=== PATIENT | male | born 2005 | race Caucasian/White ===

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

== ENCOUNTER → 2025-04-30 | Outpatient (CLI) | payer SELFPAY, OTHER ==
--- NOTE | 2025-04-30 11:04 | VDLE_ITS ---
Reason For Study Reason For Study: Swelling RIGHT LEFT CFV is compressible, spontaneous, phasic, competent GSV is normal. and demonstrates normal augmentation. CFV is compressible, spontaneous, phasic, competent, Procedure and demonstrates normal augmentation. This is a venous duplex using B-mode, color flow and FV is compressible, spontaneous, phasic, competent spectral Doppler. and demonstrates normal augmentation. Exam performed in department. POP V is compressible, spontaneous, phasic, competent A preliminary report was called and/or faxed to and demonstrates normal augmentation. BORA Doss. T/P Trunk is compressible. PTV is compressible. LT PerV is compressible. VL/Venous Duplex US, Unilateral Interpretation Summary Deep veins of the left lower extremity are patent and compressible segmentally. There is no evidence of left lower extremity deep vein thrombosis. The left great saphenous vein appears patent an d compressible segmentally. Ordering Physician: Em Nichols Referring Physician: Yousif Lewis M.D. Performed By: Tamara Hilliard RVT
--- OUTSIDE RECORDS SUMMARY | 2025-04-30 22:49 | XMS RPT_ITS | CCD ---
Author Organization [facility] Inform ion Partnership [facility] Care Team Providers Care [employer] Mechanic Name Role Phone KAMLESH ADAMS Unavailable Unavailable GREER WHEELER Unavailable Unavailable Unavailable Primary Care Provider Unavailabl e Unavailable Primary Care Provider Unavailabl e Unavailable Primary Care Provider Unavailabl e HERNANDEZ PAYNE Referring Unavailable CARLO CEBALLOS Attending Unavailable HERNANDEZ PAYNE Attending Unavailable WESLEY VANCE Referring Unavailable SUMMER ALEMAN, DR GREER Haddad Primary Care Physician SUMMER ALEMAN, DR GREER Haddad Primary Care Unavailab mao PRADO MD, DR LIVE Gentile Attending Delfin WHEELER MD, DR GREER Haddad Primary Care Unavailab THAD Ferrell Attending Unavailable Allergies Allergy Classification Reported Allergen(s) Allergy Type Date of Onset Reaction(s) Facility (4 sources) Penicillins; Translations: [PENICILLINS] Propensity to adverse reactions 09-07-2006 [facility] Work Phone: (1 source) Penicillins Propensity to adverse reactions 09-07-2006 [facility] (2 sources) Penicillins Propensity to adverse reactions 09-07-2006 [facility] (4 sources) Fire Ant; Translations: [FIRE ANT] Drug Allergy 02-21-2025 Anaphylaxis [facility] (1 source) Penicillin; Translations: [penicillin] Drug Allergy [facility] Medications Current Medications Medication Drug Class(es) Dates Sig (Normalized) Sig (Original) acetaminophen 325 mg / HYDROcodone bitartrate 5 mg oral tablet (1 source) Opioid Agonist Start: 04-24-2025 End: 04-27-2025 take 1 tablet by mouth every six hours as needed for pain acetaminophen-hydr ocodone 325 mg-5 mg oral tablet Dose = 1 tab(s), Oral, q6hr, PRN for pain, X 3 day(s), # 5 tab(s), 0 Refill(s), Fall, 84.1 Start Date: 04/24/25 Stop Date: 04/27/25 Status: Ordered Quantity: 5.0 Unit: tab(s) Repeat number: 1 Indications: Unspecified fall, initial encounter; [id number] 0.1 ml EPINEPHrine 1 mg/ml auto-injector (2 sources) alpha-Adrenergic Agonist, beta-Adrenergic Agonist, Catecholamine EPINEPHrine 0.1 mg/0.1 mL AutoInjector 0.3 mg by INJECTION(UNSPECIF IED PARENTERAL ROUTES) route as needed (As needed for anaphylactic reactions). Active predniSONE 20 mg oral tablet (1 source) Start: 02-02-2023 End: 02-07-2023 take 2 tablets by mouth once daily predniSONE (DELTASONE) 20 mg tablet Indications: URI, acute Take 2 tablets by mouth once daily for 5 days. 10 tablet 0 02/02/2023 02/07/2023 Active Comment on above: Take 2 tablets by [facility] once daily for 5 days. Problems Active Problems Problem Classification Problem Date Documented Da te Episodic/Chronic Complications of surgical procedures or medical care (1 source) Non dose-related adverse reaction to medication; Translations: [Unspecified adverse effect of drug or medicament, initial encounter] 02-21-2025 Episodic E Codes: Fall (2 sources) Fall; Translations: [Unspecified fall, initial encounter] Onset: 04-24-2025 Episodic Other acquired deformities (1 source) Acquired deformity of lower limb; Translations: [Other specified acquired deformities of left thigh] Onset: 04-24-2025 Episodic Other acquired deformities (1 source) Other specified acquired deformities of left thigh; Translations: [Other specified acquired deformities of left thigh] Onset: 04-24-2025 Episodic Other injuries and conditions due to external causes (3 sources) Anaphylaxis; Translations: [Anaphylactic shock, unspecified, subsequent encounter] 02-05-2025 Episodic Other injuries and conditions due to external causes (2 sources) Anaphylactic shock, unspecified, subsequent encounter; Translations: [Anaphylaxis, subsequent encounter] Onset: 02-21-2025 Episodic Other upper respiratory infections (3 sources) Sore throat symptom; Translations: [Acute pharyngitis, unspecified] Onset: 04-07-2025 Episodic Poisoning by nonmedicinal substances (2 sources) Toxic effect of venom; Translations: [Toxic effect of contact with unspecified venomous animal, accidental (unintentional), initial encounter] Onset: 02-21-2025 02-21-2025 Episodic Residual codes; unclassified (1 source) Procedure not done; Translations: [Procedure and treatment not carried out, unspecified reason] Episodic Viral infection (1 source) Viral infection, unspecified; Translations: [Viral illness] Onset: 04-07-2025 Episodic Past or Other Problems Problem Classification Problem Date Documented Date Episodic/Chronic Immunizations and screening for infectious disease (5 sources) Anti-nuclear factor positive; Translations: [Other specified abnormal immunological findings in serum] Onset: 07-27-2013 07-27-2013 Episodic Inflammation; infection of eye (except that caused by tuberculosis or sexually transmitteddisease) (5 sources) Iritis; Translations: [Unspecified iridocyclitis] Onset: 07-09-2013 07-09-2013 Episodic Results Test Name Value Interpretation Reference Range Facility .Auto Diffon 04-24-2025 Basophil, Absolute 0.0 10 3/mcL Normal 0.0-0.3 [facility] Comment on above: Performed By: #### A BSGEL, ANEU, PRO, APTT, CBC, LIP, ADIFF, TROPHS, GFR, CMP, MDW, ABOGEL #### [address] [address] Basophils/100 WBC (Bld) 0.4 % Normal 0.0-2.5 [facility] Comment on above: Performed By: #### A BSGEL, ANEU, PRO, APTT, CBC, LIP, ADIFF, TROPHS, GFR, CMP, MDW, ABOGEL #### [address] [place], [place] [address] Eosinophil, Absolute 0.1 10 3/mcL Normal 0.0-0.7 [facility] Comment on above: Performed By: #### A BSGEL, ANEU, PRO, APTT, CBC, LIP, ADIFF, TROPHS, GFR, CMP, MDW, ABOGEL #### [address] [place], [place] [address] Eosinophils/100 WBC (Bld) 1.3 % Normal 0.0-6.0 [facility] Comment on above: Performed By: #### A BSGEL, ANEU, PRO, APTT, CBC, LIP, ADIFF, TROPHS, GFR, CMP, MDW, ABOGEL #### [address] [address] Lymphocyte, Absolute 2.3 10 3/mcL Normal 0.9-4.3 [facility] Comment on above: Performed By: #### A BSGEL, ANEU, PRO, APTT, CBC, LIP, ADIFF, TROPHS, GFR, CMP, MDW, ABOGEL #### [address] [address] Lymphocytes/100 WBC (Bld) 30.1 % Normal 20.0-40.0 [facility] Comment on above: Performed By: #### A BSGEL, ANEU, PRO, APTT, CBC, LIP, ADIFF, TROPHS, GFR, CMP, MDW, ABOGEL #### [address] [address] Monocyte, Absolute 0.5 10 3/mcL Normal 0.1-1.4 [facility] Comment on above: Performed By: #### A BSGEL, ANEU, PRO, APTT, CBC, LIP, ADIFF, TROPHS, GFR, CMP, MDW, ABOGEL #### [address] [address] Monocytes/100 WBC (Bld) 6.9 % Normal 2.0-13.0 [facility] Comment on above: Performed By: #### A BSGEL, ANEU, PRO, APTT, CBC, LIP, ADIFF, TROPHS, GFR, CMP, MDW, ABOGEL #### [address] [address] Neutrophils/100 WBC (Bld) 61.3 % Normal 50.0-75.0 [facility] Comment on above: Performed By: #### A BSGEL, ANEU, PRO, APTT, CBC, LIP, ADIFF, TROPHS, GFR, CMP, MDW, ABOGEL #### [facility] [address] [place], [place] [address] .GFRon 04-24-2025 Estimated Glomerular Filtration Rate 97 ml/min/1.73sqm Normal [facility] Comment on above: Result Comment: Stages of Chronic Kidney Disease (CKD) Stage Description eGFR(ml/min/1.73 sq.m.) CKD 1 Normal kidney function or >=90 normal kindney function with possible kidney damage (ex. Proteinuria) CKD 2 Kidney damage with mild loss 60-89 of kidney function CKD 3a Mild to moderate loss of kidney 45-59 function CKD 3b Moderate to severe loss of 30-44 of kindey function CKD 4 Severe loss of kidney function 15-29 CKD 5 Kidney failure <15 Note: (go live 2024) the eGFR calculation was updated to the 2020 CKD-EPI creatinine equation without a race factor to calculate the eGFR results. Performed By: #### A BSGEL, ANEU, PRO, APTT, CBC, LIP, ADIFF, TROPHS, GFR, CMP, MDW, ABOGEL ####[address] [place], [place] [address] .MDWon 04-24-2025 Monocyte Distribution Width 16.87 Normal 0.00-20.00 [facility] Comment on above: Result Comment: For ED adult patients suspected of sepsis, MDW<=20.0 does not rule out sepsis or risk of sepsis Performed By: #### A BSGEL, ANEU, PRO, APTT, CBC, LIP, ADIFF, TROPHS, GFR, CMP, MDW, ABOGEL ####[address] [place], [place] [address] .NEUABSon 04-24-2025 Neutrophil, Absolute 4.7 10 3/mcL Normal 2.3-8.1 [facility] Comment on above: Performed By: #### A BSGEL, ANEU, PRO, APTT, CBC, LIP, ADIFF, TROPHS, GFR, CMP, MDW, ABOGEL #### [address] [place], [place] [address] ABO/Rh (Gel)on 04-24-2025 ABO/Rh Interp Positive Invalid Interpretation Code [facility] Comment on above: Performed By: #### A BSGEL, ANEU, PRO, APTT, CBC, LIP, ADIFF, TROPHS, GFR, CMP, MDW, ABOGEL ####[address] [place], [place] [address] ABS (Gel)on 04-24-2025 ABSC Interp (Gel) Negative Normal [facility] Comment on above: Performed By: #### A BSGEL, ANEU, PRO, APTT, CBC, LIP, ADIFF, TROPHS, GFR, CMP, MDW, ABOGEL ####[address] [place], [place] [address] APTTon 04-24-2025 aPTT Coag (Bld) [Time] 30.6 s Normal 25.0-35.0 [facility] Comment on above: Result Comment: For Heparin anticoagulation therapy, the recommended therapeutic range is: 45.4-75.9 seconds. Patients on heparin therapy may have an extreme result. Performed By: #### A BSGEL, ANEU, PRO, APTT, CBC, LIP, ADIFF, TROPHS, GFR, CMP, MDW, ABOGEL ####[address] [place], [place] [address] CBCon 04-24-2025 Erythrocyte distribution width (RBC) [Ratio] 12.0 % Normal 11.5-15.5 [facility] Comment on above: Performed By: #### A BSGEL, ANEU, PRO, APTT, CBC, LIP, ADIFF, TROPHS, GFR, CMP, MDW, ABOGEL #### [address] [place], [place] [address] Hematocrit (Bld) [Volume fraction] 39.9 % Low 40.0-52.0 [facility] Comment on above: Performed By: #### A BSGEL, ANEU, PRO, APTT, CBC, LIP, ADIFF, TROPHS, GFR, CMP, MDW, ABOGEL #### [address] [place], [place] [address] Hgb 14.0 G/dL Normal 13.0-17.5 [facility] Comment on above: Performed By: #### A BSGEL, ANEU, PRO, APTT, CBC, LIP, ADIFF, TROPHS, GFR, CMP, MDW, ABOGEL #### [address] [address] MCH (RBC) [Entitic mass] 29.5 pg Normal 27.0-33.0 [facility] Comment on above: Performed By: #### A BSGEL, ANEU, PRO, APTT, CBC, LIP, ADIFF, TROPHS, GFR, CMP, MDW, ABOGEL #### [address] [address] MCHC 35.1 G/dL Normal 32.0-36.0 [facility] Comment on above: Performed By: #### A BSGEL, ANEU, PRO, APTT, CBC, LIP, ADIFF, TROPHS, GFR, CMP, MDW, ABOGEL #### [address] [address] MCV (RBC) [Entitic vol] 84.1 fL Normal 81.0-100.0 [facility] Comment on above: Performed By: #### A BSGEL, ANEU, PRO, APTT, CBC, LIP, ADIFF, TROPHS, GFR, CMP, MDW, ABOGEL #### [address] [address] Platelet 201 10 3/mcL Normal 150-450 [facility] Comment on above: Performed By: #### A BSGEL, ANEU, PRO, APTT, CBC, LIP, ADIFF, TROPHS, GFR, CMP, MDW, ABOGEL #### [address] [address] Platelet mean volume (Bld) [Entitic vol] 7.1 fL Normal 6.4-10.5 [facility] Comment on above: Performed By: #### A BSGEL, ANEU, PRO, APTT, CBC, LIP, ADIFF, TROPHS, GFR, CMP, MDW, ABOGEL #### [address] [address] RBC 4.75 10 6/mcL Normal 4.50-6.00 [facility] Comment on above: Performed By: #### A BSGEL, ANEU, PRO, APTT, CBC, LIP, ADIFF, TROPHS, GFR, CMP, MDW, ABOGEL #### [address] [place], [place] [address] WBC 7.6 10 3/mcL Normal 4.5-10.8 [facility] Comment on above: Performed By: #### A BSGEL, ANEU, PRO, APTT, CBC, LIP, ADIFF, TROPHS, GFR, CMP, MDW, ABOGEL #### [address] [address] CMPon 04-24-2025 Albumin Level 3.9 G/dL Normal 3.5-5.0 [facility] Comment on above: Performed By: #### A BSGEL, ANEU, PRO, APTT, CBC, LIP, ADIFF, TROPHS, GFR, CMP, MDW, ABOGEL ####[address] [address] Albumin/Globulin [Mass ratio] 1.3 {ratio} Normal 1.1-2.5 [facility] Comment on above: Performed By: #### A BSGEL, ANEU, PRO, APTT, CBC, LIP, ADIFF, TROPHS, GFR, CMP, MDW, ABOGEL ####[facility] [place], [place] [address] ALP [Catalytic activity/Vol] 122 U/L Normal 40-135 [facility] Comment on above: Performed By: #### A BSGEL, ANEU, PRO, APTT, CBC, LIP, ADIFF, TROPHS, GFR, CMP, MDW, ABOGEL ####[facility] [place], [place] [address] ALT [Catalytic activity/Vol] 39 U/L Normal 16-63 [facility] Comment on above: Performed By: #### A BSGEL, ANEU, PRO, APTT, CBC, LIP, ADIFF, TROPHS, GFR, CMP, MDW, ABOGEL ####[address] [place], [place] [address] AST [Catalytic activity/Vol] 25 U/L Normal 10-40 [facility] Comment on above: Performed By: #### A BSGEL, ANEU, PRO, APTT, CBC, LIP, ADIFF, TROPHS, GFR, CMP, MDW, ABOGEL ####[address] [address] Bili Total 0.4 mg/dL Normal 0.2-1.0 [facility] Comment on above: Result Comment: Use of this assay is not recommended for patients undergoing treatment with eltrombopag due to the potential for falsely elevated results. Performed By: #### A BSGEL, ANEU, PRO, APTT, CBC, LIP, ADIFF, TROPHS, GFR, CMP, MDW, ABOGEL ####[address] [place] [address] BUN/Creatinine Ratio 19 ratio Normal 7-27 [facility] Comment on above: Performed By: #### A BSGEL, ANEU, PRO, APTT, CBC, LIP, ADIFF, TROPHS, GFR, CMP, MDW, ABOGEL ####[address] [address] Calcium [Mass/Vol] 8.7 mg/dL Normal 8.4-10.2 [facility] Comment on above: Performed By: #### A BSGEL, ANEU, PRO, APTT, CBC, LIP, ADIFF, TROPHS, GFR, CMP, MDW, ABOGEL ####[address] [place], [place] [address] Chloride [Moles/Vol] 105 mmol/L Normal 98-107 [facility] Comment on above: Performed By: #### A BSGEL, ANEU, PRO, APTT, CBC, LIP, ADIFF, TROPHS, GFR, CMP, MDW, ABOGEL ####[address] [place], [place] [address] CO2 [Moles/Vol] 29 mmol/L Normal 22-29 [facility] Comment on above: Performed By: #### A BSGEL, ANEU, PRO, APTT, CBC, LIP, ADIFF, TROPHS, GFR, CMP, MDW, ABOGEL ####[facility] [place], [place] [address] Creatinine [Mass/Vol] 1.10 mg/dL Normal 0.67-1.17 [facility] Comment on above: Performed By: #### A BSGEL, ANEU, PRO, APTT, CBC, LIP, ADIFF, TROPHS, GFR, CMP, MDW, ABOGEL ####[address] [place], [place] [address] Electrolyte Balance 8.0 mEq/L Normal 4.0-15.0 [facility] Comment on above: Performed By: #### A BSGEL, ANEU, PRO, APTT, CBC, LIP, ADIFF, TROPHS, GFR, CMP, MDW, ABOGEL ####[address] [place], [place] [address] Globulin 2.9 G/dL Normal 2.7-4.4 [facility] Comment on above: Performed By: #### A BSGEL, ANEU, PRO, APTT, CBC, LIP, ADIFF, TROPHS, GFR, CMP, MDW, ABOGEL ####[address] [address] Glucose [Mass/Vol] 71 mg/dL Normal 70-105 [facility] Comment on above: Performed By: #### A BSGEL, ANEU, PRO, APTT, CBC, LIP, ADIFF, TROPHS, GFR, CMP, MDW, ABOGEL ####[address] [address] Potassium [Moles/Vol] 3.2 mmol/L Low 3.5-5.1 [facility] Comment on above: Performed By: #### A BSGEL, ANEU, PRO, APTT, CBC, LIP, ADIFF, TROPHS, GFR, CMP, MDW, ABOGEL ####[address] [place], [place] [address] Sodium [Moles/Vol] 142 mmol/L Normal 136-145 [facility] Comment on above: Performed By: #### A BSGEL, ANEU, PRO, APTT, CBC, LIP, ADIFF, TROPHS, GFR, CMP, MDW, ABOGEL ####[facility] [place], [place] [address] Total Protein 6.8 G/dL Normal 6.4-8.2 [facility] Comment on above: Performed By: #### A BSGEL, ANEU, PRO, APTT, CBC, LIP, ADIFF, TROPHS, GFR, CMP, MDW, ABOGEL ####[facility] [place], [place] [address] Urea nitrogen [Mass/Vol] 21 mg/dL High 7-18 [facility] Comment on above: Performed By: #### A BSGEL, ANEU, PRO, APTT, CBC, LIP, ADIFF, TROPHS, GFR, CMP, MDW, ABOGEL ####[facility] [place], [place] [address] CT ABD/PELVIS W/ IV CONTRAST ONLYon 04-24-2025 CT ABD/PELVIS W/ IV CONTRAST ONLY ORIGINAL EXAMINATION: CT OF THE ABDOMEN AND PELVIS WITH CONTRAST 04/24/2025 3:19 pm TECHNIQUE: CT of the abdomen and pelvis was performed with the administration of intravenous contrast. Multiplanar reformatted images are provided for review. Automated exposure control, iterative reconstruction, and/or weight based adjustment of the mA/kV was utilized to reduce the radiation dose to as low as reasonably achievable. COMPARISON: None. HISTORY: ORDERING SYSTEM PROVIDED HISTORY: Reason for Exam: pt fell through several floors, back pain pain; trauma patient FINDINGS: Please see separately dictated CT chest from same day for findings above the diaphragm. Lung bases are clear. No pleural effusion. Heart is normal in size without pericardial effusion. Normal liver morphology. No suspicious hepatic lesions. Gallbladder is unremarkable. No biliary dilatation. Spleen, pancreas and adrenal glands are unremarkable. Kidneys are symmetric in size without evidence of hydronephrosis or renal calculi. Ureters are normal in caliber. Urinary bladder is unremarkable. Prostate is normal in size. Esophagus, stomach and duodenum are unremarkable. Normal caliber small and large bowel. Appendix is unremarkable. No free pelvic fluid or evidence of pneumoperitoneum. Aorta is normal in caliber. Portal venous system is patent. No pathologically enlarged abdominal or pelvic lymph nodes. Abdominal wall is intact. No aggressive osseous lesions or evidence of acute displaced fracture within the abdomen and pelvis. IMPRESSION: No acute traumatic findings within the abdomen and pelvis. CT chest is dictated separately. Interpreted by: Carmelo Medina Preliminary Report By: Carmelo Medina Electronically signed By Carmelo Medina Dictated Date: 04/24/2025 3:21:46 PM Prelim Date: 04/24/2025 3:26:51 PM Sign Date: 04/24/2025 3:26:51 PM Ordering Provider: MASOOD WILLIAMS [facility] CT FEMUR W/O CONTRAST LEFTon 04-24-2025 CT FEMUR W/O CONTRAST LEFT ORIGINAL EXAMINATION: CT OF THE LEFT FEMUR WITHOUT CONTRAST 04/24/2025 3:14 pm TECHNIQUE: CT of the left femur was performed without the administration of intravenous contrast. Multiplanar reformatted images are provided for review. Automated exposure control, iterative reconstruction, and/or weight based adjustment of the mA/kV was utilized to reduce the radiation dose to as low as reasonably achievable. COMPARISON: Same day CT abdomen and pelvis HISTORY ORDERING SYSTEM PROVIDED HISTORY: Reason for Exam: suspected fracture, fall from height FINDINGS: Bones: There is buckling of the proximal to mid femoral shaft (series 601, image 71). No aggressive appearing osseous abnormality or periostitis. Soft Tissue: No significant soft tissue edema or fluid collections.Muscle compartments are unremarkable. Skeletally immature. There is loss of the normal contours of the femoral head neck junction of the anterior femur, cam deformity. IMPRESSION: 1. Buckling of the proximal to mid femoral shaft, this could be related to motion artifact offset on CT versus acute buckle fracture. 2. Cam deformity of the femoral head neck junction, correlate for femoroacetabular impingement. Interpreted by: Cris Freeman Preliminary Report By: Cris Freeman Electronically signed By Cris Freeman Dictated Date: 04/24/2025 3:55:43 PM Prelim Date: 04/24/2025 4:05:07 PM Sign Date: 04/24/2025 4:05:07 PM Ordering Provider: MASOOD BHATIA [facility] CT HEAD OR BRAIN W/O CONTRAS Ton 04-24-2025 CT HEAD OR BRAIN W/O CONTRAST ORIGINAL HISTORY: Fall COMPARISON: No TECHNIQUE: Routine noncontrast head CT, with sagittal and coronal reconstructions. This exam was performed according to our departmental dose optimization program, and includes the following measures where applicable: automated exposure control, adjustment of the mAs and/or kVp according to patient size and/or exam, and an iterative reconstruction algorithm. FINDINGS: The ventricles and sulci are normal in size and configuration. There are no abnormal intra or extra-axial fluid collections. -white matter differentiation is maintained. The calvaria and the bones of the base of the skull are intact. IMPRESSION: Negative. Interpreted by: Kelley Mensah MD Preliminary Report By: Kelley Mensah MD Electronically signed By Kelley Mensah MD Dictated Date: 04/24/2025 2:48:49 PM Prelim Date: 04/24/2025 2:49:40 PM Sign Date: 04/24/2025 2:49:40 PM Ordering Provider: [place] [facility] CT SPINE CERVICAL W/O CONTRA STon 04-24-2025 CT SPINE CERVICAL W/O CONTRAST ORIGINAL HISTORY: Pain, trauma COMPARISON: No TECHNIQUE: Cervical spine CT with sagittal and coronal reconstructions. This exam was performed according to our departmental dose optimization program, and includes the following measures where applicable: automated exposure control, adjustment of the mAs and/or kVp according to patient size and/or exam, and an iterative reconstruction algorithm. FINDINGS: There are no acute fractures or dislocations. There is straightening of the normal cervical lordosis. The individual vertebral bodies are intact. The prevertebral soft tissues are unremarkable in appearance. IMPRESSION: No acute fracture. Interpreted by: Kelley Mensah MD Preliminary Report By: Kelley Mensah MD Electronically signed By Kelley Mensah MD Dictated Date: 04/24/2025 3:04:20 PM Prelim Date: 04/24/2025 3:05:39 PM Sign Date: 04/24/2025 3:05:39 PM Ordering Provider: [place] [facility] CT THORAX W/ CONTRASTon 04-15 CT THORAX W/ CONTRAST ORIGINAL EXAMINATION: CT OF THE CHEST WITH CONTRAST 04/24/2025 3:07 pm TECHNIQUE: CT of the chest was performed with the administration of intravenous contrast. Multiplanar reformatted images are provided for review. Automated exposure control, iterative reconstruction, and/or weight based adjustment of the mA/kV was utilized to reduce the radiation dose to as low as reasonably achievable. COMPARISON: None. HISTORY: ORDERING SYSTEM PROVIDED HISTORY: Reason for Exam: pt fell through several floors, back pain ; trauma patient - suspect aortic rupture, pulmonary trauma FINDINGS: Mediastinum: There are no pathologically enlarged axillary or supraclavicular lymph nodes. There are no pathologically enlarged mediastinal lymph nodes. The main pulmonary artery and aorta are normal in caliber. Lungs/pleura: There is no pneumothorax, focal consolidation, or pleural effusion. Is no suspicious nodule or mass. No acute process within the visualized lungs. Upper Abdomen: Same day CT abdomen and pelvis is reported separately. Soft Tissues/Bones: No acute soft tissue abnormality. No aggressive osseous lesion. IMPRESSION: No acute intrathoracic process. I have personally reviewed the images of this examination and agree with the resident's findings and interpretation. Interpreted by: Dakota Wilkins DO Preliminary Report By: Freddy Lancaster Electronically signed By Dakota Wilkins DO Dictated Date: 04/24/2025 3:11:39 PM Prelim Date: 04/24/2025 3:48:10 PM Sign Date: 04/24/2025 3:48:10 PM Ordering Provider: MASOOD Casarez [facility]ORYOrdered By: Bonnie Seay on 04-24-2025 ABO and Rh group Nom (Bld) Blood group O Rh(D) positive Invalid Interpretation Code AO BB Auto SS Blood group antibody screen Ql Negative ABSC (04/24/25 2:55 PM) Normal AO BB Auto SS LABORATORYOrdered By: SYSTEM SYSTEM on 04-24-2025 Albumin BCP dye [Mass/Vol] 3.9 G/dL Normal 3.5 - 5.0 G/dL AO ADM SS Albumin/Globulin [Mass ratio] 1.3 {ratio} Normal 1.1 - 2.5 ratio AO ADM SS ALP [Catalytic activity/Vol] 122 U/L Normal 40 - 135 U/L AO ADM SS ALT With P-5'-P [Catalytic activity/Vol] 39 U/L Normal 16 - 63 U/L AO ADM SS aPTT Coag (PPP) [Time] 30.6 s Normal 25.0 - 35.0 seconds AO [facility] SS Comment on above: Interpretive Data: F or Heparin anticoagulation therapy, the recommended therapeutic range is: 45.4-75.9 seconds. Patients on heparin therapy may have an extreme result. AST With P-5'-P [Catalytic activity/Vol] 25 U/L Normal 10 - 40 U/L AO ADM SS Basophils (Bld) [#/Vol] 0.0 103/mcL Normal 0.0 - 0.3 10^3/mcL AO Workflow SS Basophils/100 WBC (Bld) 0.4 % Normal 0.0 - 2.5 % AO Workflow SS Bilirubin [Mass/Vol] 0.4 mg/dL Normal 0.2 - 1 .0 mg/dL AO ADM SS Comment on above: Interpretive Data: U se of this assay is not recommended for patients undergoing treatment with eltrombopag due to the potential for falsely elevated results. Calcium [Mass/Vol] 8.7 mg/dL Normal 8.4 - 10. 2 mg/dL AO ADM SS Chloride [Moles/Vol] 105 mmol/L Normal 98 - 10 7 mmol/L AO ADM SS CO2 [Moles/Vol] 29 mmol/L Normal 22 - 29 mmol/L AO ADM SS Creatinine [Mass/Vol] 1.10 mg/dL Normal 0.67 - 1.17 mg/dL AO ADM SS Electrolyte Balance 8.0 mEq/L Normal 4.0 - 15 .0 mEq/L AO ADM SS Eosinophil, Absolute 0.1 103/mcL Normal 0.0 - 0 .7 10^3/mcL AO Workflow SS Eosinophils/100 WBC (Bld) 1.3 % Normal 0.0 - 6.0 % AO Workflow SS Erythrocyte distribution width (RBC) [Ratio] 12.0 % Normal 11.5 - 15.5 % AO Workflow SS Estimated Glomerular Filtration Rate 97 ml/min/1.73sqm Invalid Interpretation Code AO Chemistry S Comment on above: Interpretive Data: Stages of Chronic Kidney Disease (CKD) Stage Description eGFR(ml/min/1.73 sq.m.) CKD 1 Normal kidney function or >=90 normal kindney function with possible kidney damage (ex. Proteinuria) CKD 2 Kidney damage with mild loss 60-89 of kidney function CKD 3a Mild to moderate loss of kidney 45-59 function CKD 3b Moderate to severe loss of 30-44 of kindey function CKD 4 Severe loss of kidney function 15-29 CKD 5 Kidney failure <15 Note: (go live 2024) the eGFR calculation was updated to the 2020 CKD-EPI creatinine equation without a race factor to calculate the eGFR results. Globulin 2.9 G/dL Normal 2.7 - 4.4 G/dL AO ADM SS Glucose [Mass/Vol] 71 mg/dL Normal 70 - 105 mg/dL AO ADM SS Hematocrit (Bld) [Volume fraction] 39.9 % Low 40.0 - 52.0 % AO Workflow SS Hemoglobin (Bld) [Mass/Vol] 14.0 G/dL Normal 13.0 - 17.5 G/dL AO Workflow SS INR Coag (PPP) [Relative time] 1.0 {INR} Invalid Interpretation Code AO HemoHub SS Comment on above: Interpretive Data: Vanita clarke [employer] (CHEST, 1991, 102:312S-25S) recommended therapeutic range for oral anticoagulant therapy is: LOW RISK: Prophylaxis of venous thrombosis INR: 2.0-3.0 Treatment of pulmonary embolism 2.0-3.0 Prevention of systemic embolism 2.0-3.0 HIGH RISK: Mechanical prosthetic valves 2.5-3.5 Lipase [Catalytic activity/Vol] 18 U/L Normal 16 - 77 U/L AO ADM SS Lymphocytes (Bld) [#/Vol] 2.3 103/mcL Normal 0.9 - 4.3 10^3/mcL AO Workflow SS Lymphocytes/100 WBC (Bld) 30.1 % Normal 20.0 - 40.0 % AO Workflow SS MCH (RBC) [Entitic mass] 29.5 pg Normal 27.0 - 33.0 pg AO Workflow SS MCHC 35.1 G/dL Normal 32.0 - 36.0 G/dL AO Workflow SS MCV (RBC) [Entitic vol] 84.1 fL Normal 81.0 - 100.0 fL AO Workflow SS Monocyte distribution width Auto (Bld) [Entitic vol] 16.87 1 Normal 0.00 - 20.00 AO Workflow SS Comment on above: Result Comment: For ED adult patients suspected of sepsis, MDW<=20.0 does not rule out sepsis or risk of sepsis Monocytes (Bld) [#/Vol] 0.5 103/mcL Normal 0.1 - 1.4 10^3/mcL AO Workflow SS Monocytes/100 WBC (Bld) 6.9 % Normal 2.0 - 13.0 % AO Workflow SS Neutrophils (Bld) [#/Vol] 4.7 103/mcL Normal 2.3 - 8.1 10^3/mcL AO Workflow SS Neutrophils/100 WBC (Bld) 61.3 % Normal 50.0 - 75.0 % AO Workflow SS Platelet mean volume (Bld) [Entitic vol] 7.1 fL Normal 6.4 - 10.5 fL AO Workflow SS Platelets (Bld) [#/Vol] 201 103/mcL Normal 150 - 450 10^3/mcL AO Workflow SS Potassium [Moles/Vol] 3.2 mmol/L Low 3.5 - 5.1 mmol/L AO ADM SS Protein [Mass/Vol] 6.8 G/dL Normal 6.4 - 8.2 G/dL AO ADM SS PT Coag (PPP) [Time] 11.9 s Normal 9.0 - 1 4.4 seconds AO HemoHub SS RBC (Bld) [#/Vol] 4.75 106/mcL Normal 4.50 - 6.0 0 10^6/mcL AO Workflow SS Sodium [Moles/Vol] 142 mmol/L Normal 136 - 145 mmol/L AO ADM SS Troponin I.cardiac DL <= 0.01 ng/mL [Mass/Vol] ng/L Normal 0 - 76 ng/L AO ADM SS Comment on above: Interpretive Data: H igh Sensitive Troponin I Reference Ranges: Female: 0-51 ng/L Male: 0-76 ng/L Testing performed on [employer] using a homogeneous sandwich chemiluminescent immunoassay based on [employer] technology. Urea nitrogen [Mass/Vol] 21 mg/dL High 7 - 18 mg/dL AO ADM SS Urea nitrogen/Creatinine [Mass ratio] 19 ratio Normal 7 - 27 ratio AO ADM SS WBC (Bld) [#/Vol] 7.6 103/mcL Normal 4.5 - 10.8 10^3/mcL AO Workflow SS LABORATORYOrdered By: Brock Serrano on 04-24-2025 Amphetamines Screen Ql (U) Negative *NA* (04/24/25 2:55 PM) Invalid Interpretation Code Negative AO ADM SS Barbiturates Screen Ql (U) Negative *NA* (04/24/25 2:55 PM) Invalid Interpretation Code Negative AO ADM SS Benzodiazepines Ql (U) Negative *NA* (04/24/25 2:55 PM) Invalid Interpretation Code Negative AO ADM SS Benzoylecgonine Screen Ql (U) Negative *NA* (04/24/25 2:55 PM) Invalid Interpretation Code Negative AO ADM SS Cannabinoids Screen Ql (U) Negative *NA* (04/24/25 2:55 PM) Invalid Interpretation Code Negative AO ADM SS Methadone Screen Ql (U) Negative *NA* (04/24/25 2:55 PM) Invalid Interpretation Code Negative AO ADM SS Opiates Screen Ql (U) Positive *ABN* (04/24/25 2:55 PM) Invalid Interpretation Code Negative AO ADM SS Phencyclidine Ql (U) Negative *NA* (04/24/25 2:55 PM) Invalid Interpretation Code Negative AO ADM SS Urine Drugs screened: See Below 6 (04/24/25 2:55 PM) Normal AO Chemistry S Comment on above: Interpretive Data: T his drug screen is a presumptive screening only. No confirmation will be performed unless requested. Drugs screened include: Threshold Amphetamines/Methamphetamines 1,000 ng/mL Barbiturates 200 ng/mL Benzodiazepine metabolites 200 ng/mL Cannabinoids (THC metabolites) 50 ng/mL Cocaine 300 ng/mL Opiates 300 ng/mL Methadone 300 ng/mL Phencyclidine (PCP) 25 ng/mL Testing has been performed FOR MEDICAL PURPOSES ONLY. LABORATORYOrdered By: Apple Sullivan on 04-24-2025 Appearance (U) Clear (04/24/25 2:55 PM) Normal Clear AO Auto Urine SS Bilirubin Ql (U) Negative (04/24/25 2:55 PM) Normal Negative AO Auto Urine SS Color (U) Yellow (04/24/25 2:55 PM) Normal AO Auto Urine SS Glucose Test strip (U) [Mass/Vol] Negative Normal Negative AO Auto Urine SS Hemoglobin Auto test strip (U) [Mass/Vol] Negative (04/24/25 2:55 PM) Normal Negative AO Auto Urine SS Ketones Ql (U) Negative Normal Negative AO Auto Ur ine SS UA Leuk Est Negative (04/24/25 2:55 PM) Normal Negative AO Auto Urine SS UA Nitrite Negative (04/24/25 2:55 PM) Normal Negative AO Auto Urine SS UA pH 7.0 (04/24/25 2:55 PM) Normal 5.0 - 8.0 AO Auto Urine SS UA Protein Negative Normal Negative AO Auto Urine SS UA Spec Grav 1.010 *ABN* (04/24/25 2:55 PM) Invalid Interpretation Code 1.015-1.025 AO Auto Urine SS UA Specimen Type Void (04/24/25 2:55 PM) Normal AO Auto Urine SS UA Urobilinogen 1.0 E.U./dL Normal 0.2-1.0 AO Auto Urine SS LIPon 04-24-2025 Lipase Level 18 U/L Normal 16-77 [facility] Comment on above: Performed By: #### A BSGEL, ANEU, PRO, APTT, CBC, LIP, ADIFF, TROPHS, GFR, CMP, MDW, ABOGEL ####[address] [place], [place] [address] PROon 04-24-2025 PT Coag (PPP) [Time] 11.9 s Normal 9.0-14.4 [facility] Comment on above: Performed By: #### A BSGEL, ANEU, PRO, APTT, CBC, LIP, ADIFF, TROPHS, GFR, CMP, MDW, ABOGEL ####[address] [place], [place] [address] PT International Ratio 1.0 Normal [facility] Comment on above: Result Comment: [employer] (CHEST, 1992, 102:312S-25S) recommended therapeutic range for oral anticoagulant therapy is: LOW RISK: Prophylaxis of venous thrombosis INR: 2.0-3.0 Treatment of pulmonary embolism 2.0-3.0 Prevention of systemic embolism 2.0-3.0 HIGH RISK: Mechanical prosthetic valves 2.5-3.5 Performed By: #### A BSGEL, ANEU, PRO, APTT, CBC, LIP, ADIFF, TROPHS, GFR, CMP, MDW, ABOGEL ####[address] [place], [place] [address] TROPHSon 04-24-2025 High Sensitivity Troponin I <4 Normal 0-76 [facility] Comment on above: Result Comment: High Sensitive Troponin I Reference Ranges: Female: 0-51 ng/L Male: 0-76 ng/L Testing performed on [employer] using a homogeneous sandwich chemiluminescent immunoassay based on [employer] technology. Performed By: #### A BSGEL, ANEU, PRO, APTT, CBC, LIP, ADIFF, TROPHS, GFR, CMP, MDW, ABOGEL ####[facility] [place], [place] [address] UAon 04-24-2025 Color (U) Yellow Normal [facility] Comment on above: Performed By: #### U A ####[address] [place] [address] Glucose (U) [Mass/Vol] Negative Normal Negative [facility] Comment on above: Performed By: #### U A ####[address] [place] [address] Ketones Ql (U) Negative Normal Negative [facility] Comment on above: Performed By: #### U A ####[address] [place] [address] UA Appear Clear Normal Clear [facility] Comment on above: Performed By: #### U A ####[address] [address] UA Blood Negative Normal Negative [facility] Comment on above: Performed By: #### U A ####[address] [address] UA Leuk Est Negative Normal Negative [facility] Comment on above: Performed By: #### U A ####[address] [address] UA Nitrite Negative Normal Negative [facility] Comment on above: Performed By: #### U A ####[address] [place] [address] UA pH 7.0 Normal 5.0 - 8.0 [facility] Comment on above: Performed By: #### U A ####[address] [place] [address] UA Protein Negative Normal Negative [facility] Comment on above: Performed By: #### U A ####[address] [place] [address] UA Spec Grav 1.010 Abnormal 1.015-1.025 [facility] Comment on above: Performed By: #### U A ####[address] [place] [address] UA Specimen Type Void Normal [facility] Comment on above: Performed By: #### U A ####[address] [address] UA Urobilinogen 1.0 E.U./dL Normal 0.2-1.0 [facility] Comment on above: Performed By: #### U A ####[place] [address] Urobilinogen (U) [Mass/Vol] Negative Normal Negative [facility] Comment on above: Performed By: #### U A ####[place] [address] UDRUGon 04-24-2025 Amphetamine (u) Negative Normal Negative [facility] Comment on above: Performed By: #### U DRUG #### [place] [address] Barbiturate (u) Negative Normal Negative [facility] Comment on above: Performed By: #### U DRUG #### [address] [address] Benzodiazepine (u) Negative Normal Negative [facility] Comment on above: Performed By: #### U DRUG #### [address] [address] Cannabinoid (u) Negative Normal Negative [facility] Comment on above: Performed By: #### U DRUG #### [address] [address] Cocaine Ql (U) Negative Normal Negative [facility] Comment on above: Performed By: #### U DRUG #### [address] [address] Methadone Ql (U) Negative Normal Negative [facility] Comment on above: Performed By: #### U DRUG #### [address] [address] Opiate (u) Positive Abnormal Negative [facility] Comment on above: Performed By: #### U DRUG #### [address] [address] PCP (u) Negative Normal Negative [facility] Comment on above: Performed By: #### U DRUG #### [address] [address] Urine Drugs screened: See Below Normal L [facility] Comment on above: Result Comment: This drug screen is a presumptive screening only. No confirmation will be performed unless requested. Drugs screened include: Threshold Amphetamines/Methamphetamines 1,000 ng/mL Barbiturates 200 ng/mL Benzodiazepine metabolites 200 ng/mL Cannabinoids (THC metabolites) 50 ng/mL Cocaine 300 ng/mL Opiates 300 ng/mL Methadone 300 ng/mL Phencyclidine (PCP) 25 ng/mL Testing has been performed FOR MEDICAL PURPOSES ONLY. Performed By: #### U DRUG #### [address] [address] XR FEMUR MINIMUM 2 VIEWS LEF Ton 04-24-2025 XR FEMUR MINIMUM 2 VIEWS LEFT ORIGINAL EXAMINATION: TWO XRAY VIEWS OF THE LEFT FEMUR 04/24/2025 5:10 pm COMPARISON: CT of the same date. HISTORY: ORDERING SYSTEM PROVIDED HISTORY: Reason for Exam: concern for occult buckle fracture FINDINGS: There is no evidence of acute fracture. There is normal alignment. No acute joint abnormality. No focal osseous lesion. No focal soft tissue abnormality. IMPRESSION: No acute osseous abnormality. (The apparent findings on prior CT are therefore demonstrated to have been artifactual.) Interpreted by: Carmelo Gavin Preliminary Report By: Carmelo Gavin Electronically signed By Carmelo Gavin Dictated Date: 04/24/2025 5:36:14 PM Prelim Date: 04/24/2025 5:41:10 PM Sign Date: 04/24/2025 5:41:10 PM Ordering Provider: MASOOD Casarez [facility] CNBella 04-07-2025 CNOV Office Visit (UCWSTR) ---- ZULEYKA WHEELER ([id number]) 1 M Date Time Provider Department 04/07/25 11:30 AM [facility] During your visit today, we recorded the following information about you: Temperature Pulse Respiration Blood pressure 97.5 degrees 88/minute 16/minute 119/73 Weight 90.2 kg Carlo Ceballos APRN.[facility] 04/07/2025 11:46 AM Signed [facility] Subjective Zuleyka Wheeler is a 20 year old male. Patient presents with: Sore Throat: With intermittent cough at night HPI Nontoxic-appearing 20-year-old male presents urgent care chief complaint sore throat cough runny nose. Duration of symptoms 4 days. Associated symptoms listed above. Presents today to rule out strep throat. OTC medications none recently. Unknown sick contacts. Denies any difficulty swallowing and secretion decreased range of motion neck trismus or high fevers. Past medical history prescription medications allergies reviewed Review of Systems Constitutional: Negative for chills, diaphoresis, fatigue and fever. HENT: Positive for rhinorrhea and sore throat. Negative for congestion, ear discharge, ear pain, sinus pressure, sinus pain and sneezing. Eyes: Negative for pain, discharge, redness, itching and visual disturbance. Respiratory: Positive for cough. Negative for chest tightness, shortness of breath and wheezing. Cardiovascular: Negative for chest pain. Gastrointestinal: Negative for abdominal pain, constipation, diarrhea, nausea and vomiting. Musculoskeletal: Negative for joint swelling, neck pain and neck stiffness. Skin: Negative for rash. Neurological: Negative for dizziness, weakness and headaches. Objective BP 119/73 Pulse 88 Temp 36.4 ?C (97.5 ?F) (Right Tympanic) Resp 16 Wt 90.2 kg (198 lb 13.7 oz) SpO2 100% Physical Exam Constitutional: Appearance: Normal appearance. HENT: Head: Normocephalic. Right Ear: Tympanic membrane, ear canal and external ear normal. Left Ear: Tympanic membrane, ear canal and external ear normal. Nose: Congestion present. No rhinorrhea. Mouth/Throat: Mouth: Mucous membranes are moist. Pharynx: Oropharynx is clear. No oropharyngeal exudate or posterior oropharyngeal erythema. Eyes: Conjunctiva/sclera: Conjunctivae normal. Cardiovascular: Rate and Rhythm: Normal rate. Pulmonary: Effort: Pulmonary effort is normal. Breath sounds: Normal breath sounds. No wheezing, rhonchi or rales. Abdominal: Palpations: Abdomen is soft. Tenderness: There is no abdominal tenderness. There is no guarding or rebound. Musculoskeletal: General: Normal range of motion. Cervical back: Normal range of motion and neck supple. No rigidity. Lymphadenopathy: Cervical: No cervical adenopathy. Skin: General: Skin is warm. Findings: No rash. Neurological: Mental Status: He is alert. {ASSESSMENT/PLAN: 1. Sore throat - ICD9: 462, ICD10: J02.9 (primary diagnosis) - STREP A MOLECULAR (POC) 2. Viral illness - ICD9: 079.99, ICD10: B34.9 - Discussed viral etiology and rationale for treatment. - Rapid strep negative in office today - Symptomatic treatment with prn analgesia - Supportive care with fluids and rest Strep test negative. No evidence of bacterial infection noted today's assessment. Treat as viral etiology. Red flags for prompt reevaluation discussed. Patient was educated on supportive therapies. Patient will follow up with primary care provider as needed. Patient was instructed to immediately proceed to emergency room for any new, worsening, or symptoms lasting longer than anticipated. The patient's clinical presentation is otherwise unremarkable at this time. Based on exam and clinical finding, the patient is stable for discharge. Plan of care was discussed with patient. Patient verbalizes understanding and agrees to plan of care. This note was generated using TAXI5.[employer] software. It may contain errors in wording, punctuation, or spelling. Carlo Ceballos APRN.[employer] MDM Procedures Allergies As of Date: 04/07/2025 Noted Allergy Reaction FIRE ANT 02/21/2025 10 - Anaphylaxis PENICILLINS 09/07/2006 4 - Hives Date Reviewed: 04/07/2025 Reviewed by: Carlo Ceballos APRN.[employer] - Fully Assessed Reason for Visit: Sore Throat [200] Cmt: With intermittent cough at night Primary Visit Diagnosis:Sore throat [J02.9] Other Visit Diagnosis:Viral illness [B34.9] Order(s):STREP A MOLECULAR (POC) [[id number]] Order #: [id number]. #:[id number] benzonatate (TESSALON PERLE) 100 mg capsuleTake 1 capsule by mouth three times a day as needed for cough for up to 7 days.Disp: 21 capsuleRfl: 0 Prescriptions as of 04/07/2025 - benzonatate (TESSALON PERLE) 100 mg capsule Take 1 capsule by mouth three times a day as needed for cough for up to 7 days. - EPINEPHrine 0.1 mg/0.1 mL AutoInjector 0.3 mg by INJ (more content not included)... Normal [facility] ALLERGEN, INSECTS AND VENOM, FIRE ANT (SOLENOPSIS INVICTA), IGEon 02-21-2025 ALLERGEN, INSECT, FIRE ANT, IMPORTED IGE <0.10 Normal <=0.34 [facility] Comment on above: Order Comment: Speci men Type: BLOOD SPECIMEN Ordering Facility: [facility] Address: [address] [id number] Result Comment: INTE RPRETIVE INFORMATION: Allergen, Fire Ant, Imported Patients with elevated IgE specific for fire ant venom are at risk for a systemic anaphylactic reaction. This IgE rast uses a purified fire ant venom, rather than whole body extract. It was obtained from Solenopsis Invicta, the dominant fire ant species in the [facility]. 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 Baseline tryptase level will also be obtained. If Solenopsis invicta sIgE level is negative, will recommend the patient return for the completion of allergy skin test to fire ant extract. If tests are positive, subcutaneous allergy immunotherapy to Fire Ants will be recommended. Patient will think about whether or not he would like to proceed with fire ant immunotherapy. Discussed the risks of not proceeding including risk of severe potentially fatal anaphylactic reaction. The patient should have epinephrine autoinjectors (Epipen, Auvi-Q 0.3 mg, or Adrenaclick 0.3 mg) and cetirizine 10 mg when in the areas where Fire ants are found, such as the [facility] and parts of [place], available at all times in case of insect sting and allergic reaction. Proper use of epinephrine autoinjectors was reviewed with the patient. Patient was instructed to seek emergent medical care immediately after use. A second epinephrine autoinjector may be administered 5 or more minutes after the first if the reaction persists or recurs while awaiting EMS. 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 Recommend the patient return his convenience for further evaluation of possible penicillin allergy. (Depending on clinical history, may recommend a graded in office challenge to amoxicillin alone versus penicillin skin tests and then, if skin tests are negative, graded challenge to amoxicillin.) - Discussed medication dosage, usage, side effects, and goals of treatment in detail. - Recommend routine allergy follow-up visit in 1 year-although further evaluation of penicillin allergy may be completed before then at the patient's convenience- patient will return sooner should new symptoms or problems arise. Hernandez Payne MD Allergy AND Immunology This is a consultation requested by Wesley Vance APRN, CNP for an allergy and immunology evaluation. My final recommendations will be communicated back to the requesting healthcare provider(s) by way of shared medical record or via [place] mail. Zuleyka Wheeler is a 20 year old male who presents for further evaluation after experiencing an anaphylactic reaction. On November 09, 2024, patient was playing volleyball on a grass field shortly after arriving in [place] for vacation. He noted a mildly painful sting on his foot while playing volleyball. Later noted ants on the ground in the area. 1.5 hours after noting the sting, he developed generalized itching and then urticaria. He then developed a sensation of throat closure associated with difficulty breathing and abdominal pain. Per patient's girlfriend, he briefly lost consciousness upon arrival to the emergency room. In the emergency room, he was treated with epinephrine and other medications with significant improvement in his symptoms. No known history of prior fire and stings. He typically travels to [place] 1 or 2 times per year. Sometimes travels to [place]. He has epinephrine autoinjectors available at all times. In the hours preceding the sting, he drank water. No other food or drinks. Denies use of prescription or [id number] medications prior to the onset of sxs. He has a history of penicillin allergy. Reaction occurred when he was a child. Details unknown. History of asthma in childhood. Denies symptoms in recent years. REVIEW OF SYSTEMS: All other review of systems negative except for those listed above. PAST MEDICAL HISTORY Diagnosis Date PMH - PAST MEDICAL HISTORY OF asthma like symptoms PMH - PAST MEDICAL HISTORY OF 04/03/08 normal color vision Routine or ritual circumcision MEDICATIONS: No prescriptions on file. ALLERGIES: Allergies As of Date: 02/21/2025 Allergen Noted Reaction PENICILLINS 09/07/2006 Hives Fully Assessed 02/05/2025 PAST SURGICAL HISTORY Procedure Laterality Date PAST SURGICAL HISTORY OF circumcision FAMILY HISTORY: Allergic rhinitis:no. Asthma: no. Eczema: no. Cystic fibrosis: no. Immunodeficiency: no. SOCIAL HISTORY: Employer And Job Title: None on file Years Of Education Completed: Not specified Marital Status: Single Social History Tobacco Use Smoking status: Never Smokeless tobacco: Not on file (more content not included)... Normal [facility] RAST, IMMUNOCAP SCORE (REFLE X ONLY)on 02-21-2025 ALLERGEN, INTERP, IMMUNOCAP SCORE IGE See Note Normal [facility] Comment on above: Order Comment: Speci men Type: BLOOD SPECIMEN Ordering Facility: [facility] Address: [address] [place] [address] Result Comment: REFE RENCE INTERVAL: Allergen, Interpretation Less than 0.10 kU/L......Class 0.....No significant level detected 0.10-0.34 kU/L...........Class 0/1...Clinical relevance undetermined 0.35-0.70 kU/L...........Class 1.....Low 0.71-3.50 kU/L...........Class 2.....Moderate 3.51-17.50 kU/L..........Class 3.....High 17.51-50.00 kU/L.........Class 4.....Very High 50.01-100.00 kU/L........Class 5.....Very High Greater than 100.00kU/L..Class 6.....Very High Allergen results of 0.10-0.34 kU/L are intended for specialist use as the clinical relevance is undetermined. Even though increasing ranges are reflective of increasing concentrations of allergen-specific IgE, these concentrations may not correlate with the degree of clinical response or skin testing results when challenged with a specific allergen. The correlation of allergy laboratory results with clinical history and in vivo reactivity to specific allergens is essential. A negative test may not rule out clinical allergy or even anaphylaxis. Performed By: [facility] [address] [place] [address] Dispatch Clerk: Oscar Naylor MD, PhD CLIA Number: [id number] Performed By: #### I MIRTHA COOK #### [employer] CLIA [id number] [address] [place] [address] TRYPTASE BLOODon 02-21-2025 Tryptase [Mass/Vol] 4.8 ug/L Normal <8.4 [facility] Comment on above: Order Comment: Speci men Type: BLOOD SPECIMEN Ordering Facility: [facility] Address: [address] [place], [place] [address] Performed By: #### T RYPT #### [facility] CLIA [id number] [address] [place] [address] [facility] CNOVon 02-05-2025 CNOV Office Visit (UCWSTR) ---- ZULEYKA WHEELER ([id number]) 1 M Date Time Provider Department 02/05/25 5:30 PM WESLEY VANCE [facility] During your visit today, we recorded the following information about you: Temperature Pulse Respiration Blood pressure 97.9 degrees 71/minute 16/minute 128/80 Weight 88.7 kg Wesley Vance APRN.VP [employer]FORMATION [employer]CHNOLOGY 02/05/2025 5:42 PM Signed This note was created using [employer]. Subjective Zuleyka Wheeler is a 20 year old male. HPI Patient was down in [place] in October 2024 and after playing volleyball he walks [facility]. When he got back to his condo he notes that his feet were itching and within about 10 minutes he developed a generalized anaphylactic reaction. He was taken to a local emergency room where he was given epi along with other medications with complete resolution of symptoms. He presents today requesting information as to what may have caused his reaction. He denies any subsequent reactions. He does have an EpiPen that he can use as needed. Denies any known allergies. Review of Systems As above Objective BP 128/80 Pulse 71 Temp 36.6 ?C (97.9 ?F) (Tympanic) Resp 16 Wt 88.7 kg (195 lb 8.8 oz) SpO2 100% Physical Exam Vitals and nursing note reviewed. Constitutional: General: He is not in acute distress. Appearance: Normal appearance. He is not ill-appearing. HENT: Head: Normocephalic. Pulmonary: Effort: Pulmonary effort is normal. Musculoskeletal: General: Normal range of motion. Cervical back: Normal range of motion. Skin: General: Skin is warm and dry. Neurological: General: No focal deficit present. Mental Status: He is alert. Psychiatric: Mood and Affect: Mood normal. Behavior: Behavior normal. Assessment and Plan ASSESSMENT/PLAN: 1. Anaphylaxis, subsequent encounter - ICD9: V58.89, ICD10: T78.2XXD Patient denying any current symptoms on evaluation. His concern is that he had a reaction to an unknown trigger and is questioning what this trigger may be so he does not expose himself to it again. I had a discussion with him regarding allergy testing and patient was given follow-up with allergy for possible evaluation. I did review with him that is possible that they may not be able to test for his specific trigger. Patient does have an EpiPen which she will continue to carry with him. - CONSULT TO ALLERGY/IMMUNOLOGY Wesley Vance APRN.VP INFORMATION TECHNOLOGY Allergies As of Date: 02/05/2025 Noted Allergy Reaction PENICILLINS 09/07/2006 4 - Hives Date Reviewed: 02/05/2025 Reviewed by: Mili Shaffer LPN - Fully Assessed Reason for Visit: Allergic Reaction [201] Cmt: Thinks he had an allergic reaction to fire ants in October and wants checked Primary Visit Diagnosis:Anaphylax is, subsequent encounter [T78.2XXD] Order(s):CONSULT TO ALLERGY/IMMUNOLOGY [9001] Order #: [id number]: 1 FUTURE Problem List As Of Date 02/05/2025 Noted Resolved Iritis [H20.9] 07/09/2013 RISA positive [R76.8] 07/27/2013 Level of Service: OFFICE/OUTPATIENT [facility] 15 MINUTES [19062] Encounter Status:Closed by WESLEY VANCE on 02/05/25 Normal [facility] STREP A MOLECULAR (POC)on Procedural Control Valid [facility] Strep A (POCT) Negative Negative [facility] Urgent Care Visit Reporton 0 07-23-2022 Urgent Care Visit Report [facility] [place] [address] OFFICE VISIT Date of Service: 07/23/22 MR#: [id number] Acct: [id number] Name: SUMMERZULEYKA TREY Rep #: [id number] : 2005 Provider: BORA Murillo Age/Sex: 17/M Location: [facility] Status: Signed Intake Vital Signs 06/11/21 17:32 07/23/22 08:34 Height 6 ft 2 in 6 ft 4 in Weight: 165 lb BMI 20.0 BP 100/64 Blood Pressure Location Lt brachial Position Sitting Respiration 14 Pulse 89 Pulse Source Monitor Temp 98.2 F Temp Source Temporal Pulse Oximetry (%) 99 Oxygen Delivery Method room air Intake Visit Reasons: VOMITING/FATIGUE/DI ARRHEA Allergies No Known Allergies Allergy (Verified 03/08/14 18:39) PFSH Social History Smoking Status: Never smoker HPI HPI Details: ZULEYKA WHEELER, is a 17 M who presents to the office today for complaint of fatigue, diarrhea, nausea and vomiting. Patient states his fatigue started 4 days ago and then had 1 episode of vomiting with intermittent nausea since then. He denies hematochezia, hematemesis or loss of bowel/bladder control. No abdominal or pelvic pain. No fever, chills, sweats. No other associated symptoms or alleviating/aggrava ting factors. ROS Const Constitutional: No other (6 system ROS completed with pertinent findings in the HPI otherwise normal.) Exam Const General: cooperative and healthy appearing [facility] Head: normocephalic and atraumatic Ears: hearing grossly normal bilaterally Face and sinus: face symmetric Eyes General: appearance normal, both eyes and all related structures Pupils: PERRL Resp Effort Inspection: normal respiratory effort Auscultation: Bilateral: Clear to Auscultation Cardio Rate: regular rate Rhythm: regular rhythm Heart Sounds: S1 normal and S2 normal GI Inspection: normal to inspection Auscultation: hyperactive bowel sounds Percussion: normal to percussion Palpation: soft, no hepatosplenomegaly, no guarding and nontender General: bimanual renal exam normal bilaterally and No CVA tenderness Skin General: no rashes or lesions noted Neuro General: patient alert and CN's II-XI intact bilaterally Psych Appearance: grossly normal Mental Status: mental status grossly normal Results POC SARS AG POC SARS AG Negative Last Edit by Melina Fuller on 07/23/22 08:47 Coding Level of Care Code Off vis,new,level 3 Diagnoses Contact with or suspected exposure to other viral communicable disease Z20.828 Gastroenteritis K52.9 Assessment and Plan Assessment and Plan (1) Contact with or suspected exposure to other viral communicable disease: Status: Acute (2) Gastroenteritis: Status: Acute Plan: Patient tested negative for COVID in the office today. Encouraged to get plenty of rest, drink lots of clear liquids, and use Tylenol or Ibuprofen (unless contraindicated) for fever and comfort. Patient also educated on other symptomatic management techniques. To be seen in 7-10 days if no improvement; sooner if worsening of symptoms. Ondansetron as prescribed today. Patient advised of potential red flags and when appropriate to report to the ED. Patient verbalized understanding and agreement with all the above. Orders: Orders POC Rapid SARS Antigen Today Medications: New ondansetron HCl 8 mg PO Q12H PRN 10 tabs 0RF nausea and vomiting 07/23/22 0910 Date Mata Lopez Signature: Date (if applicable) CC: Normal [facility] Progress Noteon 06-11-2021 Ore [employer]er Authentication Interface Message Text Patient ID: Zuleyka Wheeler is a 16 y.o. male. His chief complaint(s) include: Fever (fever, bodyaches, headache, stiff neck, shortness of breath, chills, since wednesday, wet the bed, loss of appetite) Assessment 1. Fever, unspecified fever cause 2. Disorder of respiratory system 3. Neck stiffness Plan Zuleyka was seen today for fever. Diagnoses and all orders for this visit: Fever, unspecified fever cause Disorder of respiratory system - Pulse Ox, Single Neck stiffness No follow-ups on file. Sent patient via private car to [place] ED d/t concern for meningitis. PC to [place] ED and report given to ELIZABETH Mayers. Subjective HPI Comments: MORALEZ started Wednesday, fever started Wednesday. Friend's brother is being treated for Lyme disease. Neck stiffness and backache staying the same. No numbness/tingling or achyness in arms/legs. +runny nose/stuffy nose. No cough. + abd pain- yesterday and now, periumbilical. Voiding normally, no pain with urination, drinking a little more and peeing a little more. Last BM a few days ago- usually goes daily. MORALEZ 8/10 pain, standing up makes it better. Ibuprofen helps make the MORALEZ go away. +SOB- trouble with converstation, has to stop to take breaks to catch breath. No ibuprofen today. Fever The onset has been acute. The duration has been 3 days. The course is worsening. The patient's symptoms have included fatigue, congestion, rhinorrhea, shortness of breath and headaches. The patient's symptoms have included no sore throat, no cough, no rash and no vomiting. The patient's home management has included ibuprofen. He is accompanied by his mother. Independent history obtained from mother. Review of Systems Constitutional: Positive for fever. Objective Vital Signs 06/11/21 1650 BP: 125/77 Pulse: 95 Temp: (!) 38 C (100.4 F) TempSrc: Temporal SpO2: 100% Weight: 74.2 kg There is no height or weight on file to calculate BMI. Physical Exam Constitutional: He is active. He appears ill. No distress. HENT: Head: Atraumatic. Nose: Nose normal. Mouth/Throat: Mucous membranes are moist. Eyes: Conjunctivae and EOM are normal. Pupils are equal, round, and reactive to light. Cardiovascular: Normal rate, regular rhythm, S1 normal and S2 normal. Pulses are palpable. Pulmonary/Chest: Effort normal and breath sounds normal. Abdominal: Soft. Bowel sounds are normal. There is abdominal tenderness (RLQ). There is no rebound. Musculoskeletal: Cervical back: Pain with movement (flexion and lateral flexion bilaterally) present. General: No deformity. Lymphadenopathy: No right anterior and posterior cervical adenopathy present. No left anterior and posterior cervical adenopathy present. Neurological: He is alert. He has normal strength. He exhibits normal muscle tone. Skin: Skin is warm. Skin is not pale and cyanotic. Findings: No rash. Normal [facility] Emergency Room Note on 05-04-2018 [facility] Note Normal [facility] ([place]) Pat Eduon 05-04-2018 Pat Edu Normal [facility] [place] Patient Summary Documentson 05-04-2018 Patient Summary Documents Normal [facility] [place] XR HAND MINIMUM 3 VIEWS LEFT on 05-04-2018 XR HAND MINIMUM 3 VIEWS LEFT ORIGINALXR HAND MINIMUM 3 VIEWS LEFT CLINICAL STATEMENT: fb hand COMPARISON: None FINDINGS:3 images of the LEFT hand confirm the presence of an opaque foreign body within the palmar tissues. Osseous structures appear grossly intact. IMPRESSION:Confirma tion of foreign body within the palmar soft tissues Interpreted By: Ele Jeffersreliminary Report By: Ele Jeffers MDElectronically Signed By: Ele Jeffers MD Dictated Date: 05/04/2018 10:00:03 AM Prelim Date: 05/04/2018 10:00:03 AM Sign Date: 05/04/2018 10:01:35 AM Normal [facility] ([place]) Vital Signs Date Time Vital Sign Value Performing Clinician Faci lity 02-21-2025 08:41-0400 Body weight 88.6 kg Hernandez Payne MD Work Phone: [facility] 02-21-2025 08:41-0400 Diastolic blood pressure 64 mm[Hg] Hernandez Payne MD Work Phone: [facility] 02-21-2025 08:41-0400 Heart rate 88 /min Hernandez Payne MD Work Phone: [facility] 02-21-2025 08:41-0400 SaO2% (BldA) [Mass fraction] 99 % Hernandez Payne MD Work Phone: [facility] 02-21-2025 08:41-0400 Systolic blood pressure 146 mm[Hg] Hernandez Payne MD Work Phone: [facility] 02-05-2025 17:23-0400 Body temperature 97.9 [degF] Wesley Vance APRN.VP INFORMATION TECHNOLOGY Work Phone: [facility] 02-05-2025 17:23-0400 Body weight 88.7 kg Wesley Vance APRN.VP INFORMATION TECHNOLOGY Work Phone: [facility] 02-05-2025 17:23-0400 Diastolic blood pressure 80 mm[Hg] Wesley Moomaw [employer] Work Phone: [facility] 02-05-2025 17:23-0400 Heart rate 71 /min Wesley Moomaw [employer] Work Phone: [facility] 02-05-2025 17:23-0400 Respiratory rate 16 /min Wesley Moomaw [employer] Work Phone: [facility] 02-05-2025 17:23-0400 SaO2% (BldA) [Mass fraction] 100 % Wesley Moomaw [employer] Work Phone: [facility] 02-05-2025 17:23-0400 Systolic blood pressure 128 mm[Hg] Wesley Moomaw [employer] Work Phone: [facility] 02-02-2023 13:33-0400 Body temperature 98.29 [degF] Oscar Jose [employer] Work Phone: [facility] 02-02-2023 13:33-0400 Body weight 84.37 kg Oscar Jose [employer] Work Phone: [facility] 02-02-2023 13:33-0400 Diastolic blood pressure 78 mm[Hg] Oscar Jose [employer] Work Phone: [facility] 02-02-2023 13:33-0400 Heart rate 84 /min Oscar Jose [employer] Work Phone: [facility] 02-02-2023 13:33-0400 Respiratory rate 16 /min Oscar Jose [employer] Work Phone: [facility] 02-02-2023 13:33-0400 SaO2% (BldA) [Mass fraction] 98 % Oscar Jose [employer] Work Phone: [facility] 02-02-2023 13:33-0400 Systolic blood pressure 136 mm[Hg] Oscar Jose [employer] Work Phone: [facility] 03-15-2022 13:22-0400 Body temperature 97.81 [degF] Carlo [facility] [employer]VP [employer]FORMATION [employer] Work Phone: [facility] 03-15-2022 13:22-0400 Body [facility] [employer] Work Phone: [facility] 03-15-2022 13:22-0400 Diastolic blood pressure 58 mm[Hg] [facility] [employer] Work Phone: [facility] 03-15-2022 13:22-0400 Heart rate 77 /min [facility] [employer] Work Phone: [facility] 03-15-2022 13:22-0400 Respiratory rate 16 /min [facility] [employer] Work Phone: [facility] 03-15-2022 13:22-0400 SaO2% (BldA) [Mass fraction] 98 % [facility] [employer] Work Phone: [facility] 03-15-2022 13:22-0400 Systolic blood pressure 110 mm[Hg] [facility] [employer] Work Phone: [facility] Encounters Encounter Date Encounter Type Care Provider Facility Start: 04-27-[address] GREER WHEELER MD F acility:[facility] Start: 04-24-2025 End: 04-24-2025 Emergency department patient visit [facility] Start: 04-07-2025 End: 04-07-2025 ambulatory [facility] Facility:[facility] Start: 02-25-2025 End: 02-28-2025 ambulatory Hernandez Payne MD Work Phone: Allergy Comment on above: Fire ant results Start: 02-21-2025 End: 02-21-2025 ambulatory HERNANDEZ PAYNE Facility:[facility] Start: 02-21-2025 End: 02-21-2025 ambulatory HERNANDEZ PAYNE Facility:[facility] Start: 02-21-2025 End: 02-21-2025 Patient encounter procedure Hernandez Payne MD Work Phone: Allergy Comment on above: Toxic effect of veno m, accidental or unintentional, initial encounter (Primary Dx); Anaphylaxis, subsequent encounter; Aqx-hhtu-zdobhlm adverse effect of medication, initial encounter Start: 02-05-2025 End: 02-05-[address] [facility] Facility:[facility] Start: 02-05-2025 End: 02-05-2025 Office outpatient new 20 minutes Wesley Rajiv [employer] Work Phone: [facility] Comment on above: Anaphylaxis, subsequ ent encounter (Primary Dx) Start: 02-02-2023 End: 02-02-2023 Patient encounter procedure Oscar Garcia [employer] Work Phone: [facility] Comment on above: URI, acute (Primary Dx); Sore throat Start: 03-15-2022 End: 03-15-2022 [facility] [employer] Work Phone: [facility] Comment on above: Procedure not maddison d out (Primary Dx) Start: 05-04-2018 End: 05-04-2018 Emergency department patient visit KAMLESH ADAMS Facility:B Procedures Date Procedure Procedure Detail Performing Clinician Start: 02-02-2023 STREP A MOLECULAR (POC) Iona Neal PA-C Work Phone: None (qualifier value) DR ARTIE PRADO MD Plan of Treatment Date Care Activity Detail Author Start: 05-04-2028 Urine microalbumin profile DTaP,Tdap,Td Vaccine (4 - Td or Tdap) [facility] Start: 04-10-2025 End: 04-10-2025 Patient encounter procedure 04/10/2025 8:30 AM EDT Office Visit Allergy [address] [id number] Hernandez Payne MD [address] [place], [place] [id number] fire ant testing Allergy Comment on above: fire ant testing Start: 02-21-2025 End: 05-23-2025 ALLERGEN, INSECTS AND VENOM, FIRE ANT (SOLENOPSIS INVICTA), IGE [facility] Work Phone: Comment on above: Expected: 02/21/2025 , Expires: 05/23/2025 Start: 02-21-2025 End: 05-23-2025 TRYPTASE BLOOD [facility] Comment on above: Expected: 02/21/2025 , Expires: 05/23/2025 Start: 02-21-2025 End: 02-21-2025 Patient encounter procedure 02/21/2025 8:30 AM EDT Office Visit Allergy [address] [address] Hernandez Payne MD [address] [place], [place] [id number] Anaphylaxis, subsequent encounter [T78.2XXD] Allergy Comment on above: Anaphylaxis, subsequ ent encounter [T78.2XXD] Start: 07-16-2024 Covid-19 Vaccine ( season) Covid-19 Vaccine ( season) [facility] Start: 07-16-2024 Influenza vaccination Influenza Vacc ine (#1) [facility] Start: 11-15-2022 DEPRESSION ASSESSMENT DEPRESSION ASS ESSMENT [facility] Start: 07-16-2022 Influenza vaccination [facility] Start: 2022 Hepatitis B Vaccine (1 of 3 - 19+ 3-dose series) Hepatitis B Vaccine (1 of 3 - 19+ 3-dose series) [facility] Start: 2022 Urine microalbumin profile DTAP,TDAP,TD (3 - Tdap) [facility] Start: 2021 Anxiety Screening Anxiety Screening [facility] Start: 2021 Depression Screening Depression Scre ening [facility] Start: 2021 HEPATITIS C SCREENING HEPATITIS C [facility] Start: 2021 Hepatitis C screening Hepatitis C [facility] Start: 2021 HIV SCREENING HIV SCREENING [facility] Start: 2021 HIV screening HIV Screening [facility] Start: 2019 Meningococcal B Vacc ine (1 of 2 - Standard) Meningococcal B Vaccine (1 of 2 - Standard) [facility] Start: 2018 HPV Vaccine (1 - Mal e 3-dose series) HPV Vaccine (1 - Male 3-dose series) [facility] Start: 2017 PEDS TO ADULT TRANSI TION ANNUAL ASSESSMENT PEDS TO ADULT TRANSITION ANNUAL ASSESSMENT [facility] Start: 2015 Adult depression screening assessment DEPRESSION SCREENING [facility] Start: 2015 PEDS TO ADULT TRANSI TION INITIAL DISCUSSION PEDS TO ADULT TRANSITION INITIAL DISCUSSION [facility] Start: 2014 HPV VACCINE (1 - Mal e 2-dose series) HPV VACCINE (1 - Male 2-dose series) [facility] Start: 2013 MENINGOCOCCAL B: Consider based on risk (1 of 2 - Risk Bexsero 2-dose series) MENINGOCOCCAL B: Consider based on risk (1 of 2 - Risk Bexsero 2-dose series) [facility] Start: 01-31-2008 COVID-19 VACCINE (1) COVID-19 VACCIN E (1) [facility] Start: 2003 COVID-19 VACCINE (#1) COVID-19 VACCI NE (#1) [facility] Start: 2003 HEPATITIS B (1 of 3 - 3-dose series) HEPATITIS B (1 of 3 - 3-dose series) [facility] Immunizations Immunization Date Immunization Notes Care Provider Thiago ibarra 05-04-2018 tetanus toxoid, reduced diphtheria toxoid, and acellular pertussis vaccine, adsorbed DR LIVE PRADO MD [facility] 03-16-2014 measles, mumps and rubella virus vaccine Carlo Ceballos APRN.VP [employer] Work Phone: [facility] Work Phone: 05-27-2010 pneumococcal conjuga te vaccine, 13 valent Carlo Ceballos [employer] Work Phone: [facility] 05-08-2010 haemophilus influenz ae type b vaccine, HbOC conjugate [facility] [employer] Work Phone: [facility] 04-03-2008 diphtheria, tetanus toxoids and acellular pertussis vaccine [facility] [employer] Work Phone: [facility] Work Phone: 02-24-2005 diphtheria, tetanus toxoids and acellular pertussis vaccine [facility] [employer] Work Phone: [facility] Work Phone: Payers Date Payer Category Payer Unknown [id number] 2022 Unknown [employer] [id number] 2022-Present [phone] [address] [place] [address] Other [id number] 2022 Unknown [employer] [id number] 2022-Present [phone] [address] [place] [address] Other [id number] 2018 Self-pay 2018 Private Health Insurance [id number] 1968 Unknown [id number] 1968 Unknown [id number] Social History Date Type Detail Facility Tobacco smoking stat [facility] Never smoked tobacco [facility] Work Phone: Start: 01-07-2015 End: 02-05-2025 Alcohol intake Not Asked [facility] Start: 2003 Sex Assigned At Not on file [facility] Start: 02-05-2025 End: 02-21-2025 History of Social function [facility] Start: 02-05-2025 End: 02-21-2025 Tobacco use panel [facility] Start: 02-21-2025 Alcoholic beverage intake Current drinker of alcohol (finding) [facility] National Score (1-10 0), lower number is lower risk 46 [facility] Start: 02-21-2025 Alcohol Comment Socially [facility] Sexual Orientation [facility] Start: 05-04-2018 Sex Male (finding) [facility] Functional Status Date Assessment Result Facility 01-07-2015 Are you deaf, or do you have serious difficulty hearing No 01/07/2015 2:24 PM Jenae Miller MA No [facility] 01-07-2015 Are you blind, or do you have serious difficulty seeing, even when wearing glasses No 01/07/2015 2:24 PM Jenae Miller MA No [facility] 01-07-2015 Do you have serious difficulty walking or climbing stairs No 01/07/2015 2:24 PM Jenae Miller MA No [facility] 01-07-2015 Do you have difficul ty dressing or bathing No 01/07/2015 2:24 PM Jenae Miller MA No [facility] Mental Status Date Assessment Result Facility 01-07-2015 Because of a physica l, mental, or emotional condition, do you have serious difficulty concentrating, remembering, or making decisions No 01/07/2015 2:24 PM Jenae Miller MA No [facility] Clinical Notes 03-15-2022 to 04-24-2025 Note Date & Type Note Facility 04-24-2025 Hospital Discharg e instructions Patient Education 04/24/2025 17:45:01 Crutch Walking Crutch Walking Crutch adjustment Make sure the crutches you use are adjusted to fit you. When you stand, there should be room to fit 2 to 3 fingers between the top of the crutch and your armpit. Your elbow should be slightly bent when holding the hand floor trader. When your arms hang down, the crutch handle should be at the top of your hip. Crutch walking Place the crutches forward about 1 foot in front of you. The crutches should be a little farther apart than your body. Lean your weight forward as you push down on the hand floor trader. Make sure your weight is on your hands and your strong leg, not your armpits. Let your body swing forward, landing on the strong leg. Move the crutches forward again. The crutch and your injured leg should move together. Going up steps with no handrails (Up with the good leg) With both crutches (under each armpit) on the same step as your feet, push down on the hand floor trader. Balancing with very light pressure on the weak leg, let your hands support your weight. Raise your strong leg onto the next higher step. Transfer all your weight to your strong leg (still bent). Move the crutches up to the next step, next to your strong leg. Keep your weight evenly balanced on the two crutches and your strong leg. Straighten your strong knee as you raise your weak leg up to the next step. Going down steps with no handrails (Down with the bad leg) With both crutches (under each armpit) on the same step as your feet, push down on the hand floor trader. Keep your weight evenly balanced on the two crutches and your strong leg. Bend your strong knee as you lower your weak leg down to the next step. Let your strong leg support you (still bent) as you move the crutches down next to the weak leg. Transfer your weight to your hands. Balance with very light pressure on your weak leg as you lower your strong leg next to your weak leg Going up steps with handrails (Up with the good leg) Face the stairs, holding the handrail with one hand. Place both crutches under your armpit on the opposite side. Push down on the hand floor trader. Balancing with very light pressure on the weak leg, let your hands support your weight. Raise your strong leg onto the next higher step. Transfer all your weight to your strong leg (still bent) as you move the crutches up (while holding on to the handrail) to the next step next to the strong leg. Keep your weight evenly balanced on the handrail, the crutches (still under the same armpit opposite the handrail), and your strong leg. Straighten your strong knee as you raise the weak leg up to the next step. Going down steps with handrails (Down with the bad leg) Face the stairs, holding the handrail with one hand. Place both crutches under your armpit on the opposite side. Push down on the hand floor trader. Balance your weight evenly on the crutches, handrail, and your strong leg. Then bend your strong knee as you lower the weak leg down to the next step. Let the handrail and your strong leg support you (still bent) as you move the crutches down alongside the weak leg. While holding on to the handrail and crutches (under the same armpit on the other side), transfer your weight to your hands, balancing with very light pressure on the weak leg as you lower your strong leg alongside your weak leg Tip: If you are worried about falling or you feel unsteady, try sitting when going up or down stairs instead. Sit on the bottom step and keep your injured leg out in front of you. Hold your crutches flat against the stairs. Then slide up to the next step on your bottom. Use your free hand and good leg for support. Face the same way when going down stairs. 7057-1046 [employer]. [address] [place] [address]. All rights reserved. This information is not intended as a substitute for professional medical care. Always follow your healthcare professional's instructions. Follow Up Care 04/24/2025 14:16:11 With:CRUZITO BRUNO MD Address: [address] [place] [address] [address] [place] [address] [phone] When:2-4 days [facility] 04-24-2025 Emergency department Discharge summary Discharge Instructions Thank you for allowing [facility] to assist you with your healthcare needs. The following is important discharge information regarding your hospital visit. Diagnosis from Today's Visit Deformity of left femur Fall What to Do Next Instructions from Your Care Team Discharge Home Equipment - Ordered -- Crutches, 99 month(s), 04/24/25 17:32:00 EDT Discharge Home Equipment - Ordered -- Crutches, 99 month(s), 04/24/25 17:48:00 EDT Discharge Return to Work, School, or Sports (Return to Work, School, or Sports) - Ordered -- 04/24/25, 05/01/25, May return to: work, 04/24/25 17:32:00 EDT Post Acute Orders No qualifying data available. You Need to Schedule the Following Appointments Follow Up with CRUZITO BRUNO MD When:Within 2-4 days Where:[address] [place] [address] [place] [address] [phone] Allergies penicillin Medications Please ask your primary doctor or pharmacist before taking any other medication not listed, including over the counter drugs, herbal medications, vitamins and or supplements as they may interact with your home medications. What How Much When Why Instructions Last Dose New acetaminophen-hydrocodone (acetaminophen-hydrocodone 325 mg-5 mg oral tablet) 1 tab(s) by mouth Every 6 hours as needed for for pain Fall Duration: 3 Days Printed Prescription Please take this list to your next doctor s visit. Bring all medications you take, including over the counter medications, herbals and other supplements with you to your doctor s visit. Patients and families are reminded to discard old lists and to update any records with all medication providers or retail pharmacies. Education Materials Crutch Walking Crutch adjustment Make sure the crutches you use are adjusted to fit you. When you stand, there should be room to fit 2 to 3 fingers between the top of the crutch and your armpit. Your elbow should be slightly bent when holding the hand floor trader. When your arms hang down, the crutch handle should be at the top of your hip. Crutch walking Place the crutches forward about 1 foot in front of you. The crutches should be a little farther apart than your body. Lean your weight forward as you push down on the hand floor trader. Make sure your weight is on your hands and your strong leg, not your armpits. Let your body swing forward, landing on the strong leg. Move the crutches forward again. The crutch and your injured leg should move together. Going up steps with no handrails (Up with the good leg) With both crutches (under each armpit) on the same step as your feet, push down on the hand floor trader. Balancing with very light pressure on the weak leg, let your hands support your weight. Raise your strong leg onto the next higher step. Transfer all your weight to your strong leg (still bent). Move the crutches up to the next step, next to your strong leg. Keep your weight evenly balanced on the two crutches and your strong leg. Straighten your strong knee as you raise your weak leg up to the next step. Going down steps with no handrails (Down with the bad leg) With both crutches (under each armpit) on the same step as your feet, push down on the hand floor trader. Keep your weight evenly balanced on the two crutches and your strong leg. Bend your strong knee as you lower your weak leg down to the next step. Let your strong leg support you (still bent) as you move the crutches down next to the weak leg. Transfer your weight to your hands. Balance with very light pressure on your weak leg as you lower your strong leg next to your weak leg Going up steps with handrails (Up with the good leg) Face the stairs, holding the handrail with one hand. Place both crutches under your armpit on the opposite side. Push down on the hand floor trader. Balancing with very light pressure on the weak leg, let your hands support your weight. Raise your strong leg onto the next higher step. Transfer all your weight to your strong leg (still bent) as you move the crutches up (while holding on to the handrail) to the next step next to the strong leg. Keep your weight evenly balanced on the handrail, the crutches (still under the same armpit opposite the handrail), and your strong leg. Straighten your strong knee as you raise the weak leg up to the next step. Going down steps with handrails (Down with the bad leg) Face the stairs, holding the handrail with one hand. Place both crutches under your armpit on the opposite side. Push down on the hand floor trader. Balance your weight evenly on the crutches, handrail, and your strong leg. Then bend your strong knee as you lower the weak leg down to the next step. Let the handrail and your strong leg support you (still bent) as you move the crutches down alongside the weak leg. While holding on to the handrail and crutches (under the same armpit on the other side), transfer your weight to your hands, balancing with very light pressure on the weak leg as you lower your strong leg alongside your weak leg Tip: If you are worried about falling or you feel unsteady, try sitting when going up or down stairs instead. Sit on the bottom step and keep your injured leg out in front of you. Hold your crutches flat against the stairs. Then slide up to the next step on your bottom. Use your free hand and good leg for support. Face the same way when going down stairs. [phone] The [employer]. [address] [place] [address], [place] [address]. All rights reserved. This information is not intended as a substitute for professional medical care. Always follow your healthcare professional's instructions. Additional Information VACCINATE! IT SAVES LIVES! Members of the community who have not yet received the COVID-19 vaccine and would like to receive it can visit one of [facility] vaccine clinics. There are many vaccine clinic locations within the [facility]. For locations and available times, please visit [email or web address] It is important to note that some COVID mobile vaccine clinics are held outdoors and may be canceled in rainy or stormy conditions. To learn more about pediatric vaccinations (ages 5-11), we invite you to visit the [facility] webpage. [email or web address].[email or web address].org/p ages/2326-Utkdt-Cuwmoqpsqil-Freq gedefl-Pwpcl-Levuyzigx.html To learn more about the COVID-19 vaccine, we invite you to visit the CDC website for a list of frequently asked questions. https://www.cdc.gov/coronavirus/ 2019-ncov/vaccines/faq.html [facility] Patient Portal Access Instructions: Stay connected with your healthcare team and access your personal medical information anytime with the [facility] Patient Portal. If you would like a full copy of your medical records please contact the [facility] Medical Records Department Wednesday through Wednesday between 8a.m. and 4:30p.m. Please follow the directions below to access the portal: 1.Access the email account you provided upon registration to the [facility].2.Look for an invitation email from [facility].3.Open the email and access the invitation link: Accept Invitation to [facility].Fill in the required atkinson to create your account. Sign into www.[employer] with your username and password that you created in the above steps to stay up to date. You can then view a summary of results, a summary of your visits, and the ability to download your summaries to your computer or send the information securely to a physician. Remember that your healthcare information is confidential, so carefully consider who you will allow to register on the [facility] Patient Portal for access to your information. You can also access the [facility] Patient Portal on the [employer] brianne. Simply click on Health Records under Health Data and then click on the [employer] logo. HOW TO SAFELY DISPOSE OF PRESCRIPTION MEDICATIONS Please use one of the following methods to safely dispose of your unused medications. 1.Use a drug disposal kit: the drug disposal pouch allows you to safely discard your old and unused drugs. Ask your nurse to give you one when you are discharged.2.Visit a local take-back location: Many local pharmacies and police departments have programs that collect old and unwanted prescription drugs. Call your local pharmacy or go to http://[place]ala.[employer]/3H8Kh0m to find one close to you.3.Make use of household items: Use cat litter or old coffee grounds to dispose medications if other options are not available. Mix your drugs with these household products, seal them in an airtight container and throw it into the garbage. Call [facility]: [phone] to be sure your drugs can be disposed of in this way. Some medicines may require a different approach.4.Never flush your medications down the toilet. IF YOU HAVE BEEN PRESCRIBED AN OPIOIDS FOR PAIN If you have been prescribed an opioid (such as hydrocodone, oxycodone or morphine), it is critical to understand the possible side effects and risks of opioid pain medications. Even when taken as directed, opioids can have several side effects including: Tolerance, meaning you might need to take more of a medication for the same pain relief. Nausea, vomiting and/or constipation. Sleepiness, dizziness, dry mouth, confusion, depression or itching. Physical dependence, meaning you have withdrawal symptoms when a medication is stopped ? this can develop within a few days. KNOW YOUR RESPONSIBILITIES It is important to know exactly how much and how often to take the opioid pain medications you are prescribed. Never take opioids in higher amounts or more often than prescribed. Do not combine opioids with alcohol or other drugs that cause drowsiness, such as benzodiazepines, also known as benzos, including diazepam and alprazolam, muscle relaxants or sleep aids. Never sell or share prescription opioids. This is illegal. Store opioids in a secure place and out of reach of others (including children, family, friends and visitors). The last page(s) of this document has been signed and retained as a CHART COPY Signatures Patient Education Materials Crutch Walking Medication Leaflets My discharge plan and instructions have been reviewed and explained to me and I,ZULEYKA WHEELER understand my current condition and have read and understand these discharge instructions. I have received a written copy of the plan/instructions. If I have questions, I am aware that I should contact my doctor. Patient/Escrow Secretary Signature: Date/Time: Relationship to Patient: Witness Name/Signature: Date/Time: [facility] 04-24-2025 Note Exam Date Time Procedure Performing Provider Status 04/24/25 5:08 PM XR Femur Minimum 2 Views Left SARAH GAVIN MD; Auth (Verified) [id number] ORIGINAL EXAMINATION: TWO XRAY VIEWS OF THE LEFT FEMUR 04/24/2025 5:10 pm COMPARISON: CT of the same date. HISTORY: ORDERING SYSTEM PROVIDED HISTORY: Reason for Exam: concern for occult buckle fracture FINDINGS: There is no evidence of acute fracture. There is normal alignment. No acute joint abnormality. No focal osseous lesion. No focal soft tissue abnormality. IMPRESSION: No acute osseous abnormality. (The apparent findings on prior CT are therefore demonstrated to have been artifactual.) Interpreted by: Carmelo Gavin Preliminary Report By: Carmelo Gavin Electronically signed By Carmelo Gavin Dictated Date: 04/24/2025 5:36:14 PM Prelim Date: 04/24/2025 5:41:10 PM Sign Date: 04/24/2025 5:41:10 PM Ordering Provider: [facility]06-10-2025 Note* Exam Date Time Procedure Performing Provider Status 04/24/25 3:[address] Abd/Pelvis w/ IV Contrast Only CARMELO MEDINA DO; Auth (Verified) [id number] ORIGINAL EXAMINATION: CT OF THE ABDOMEN AND PELVIS WITH CONTRAST 04/24/2025 3:19 pm TECHNIQUE: CT of the abdomen and pelvis was performed with the administration of intravenous contrast. Multiplanar reformatted images are provided for review. Automated exposure control, iterative reconstruction, and/or weight based adjustment of the mA/kV was utilized to reduce the radiation dose to as low as reasonably achievable. COMPARISON: None. HISTORY: ORDERING SYSTEM PROVIDED HISTORY: Reason for Exam: pt fell through several floors, back pain pain; trauma patient FINDINGS: Please see separately dictated CT chest from same day for findings above the diaphragm. Lung bases are clear. No pleural effusion. Heart is normal in size without pericardial effusion. Normal liver morphology. No suspicious hepatic lesions. Gallbladder is unremarkable. No biliary dilatation. Spleen, pancreas and adrenal glands are unremarkable. Kidneys are symmetric in size without evidence of hydronephrosis or renal calculi. Ureters are normal in caliber. Urinary bladder is unremarkable. Prostate is normal in size. Esophagus, stomach and duodenum are unremarkable. Normal caliber small and large bowel. Appendix is unremarkable. No free pelvic fluid or evidence of pneumoperitoneum. Aorta is normal in caliber. Portal venous system is patent. No pathologically enlarged abdominal or pelvic lymph nodes. Abdominal wall is intact. No aggressive osseous lesions or evidence of acute displaced fracture within the abdomen and pelvis. IMPRESSION: No acute traumatic findings within the abdomen and pelvis. CT chest is dictated separately. Interpreted by: Carmelo Medina Preliminary Report By: Carmelo Medina Electronically signed By Carmelo Medina Dictated Date: 04/24/2025 3:21:46 PM Prelim Date: 04/24/2025 3:26:51 PM Sign Date: 04/24/2025 3:26:51 PM Ordering Provider: [facility]06-10-2025 Note* Exam Date Time Procedure Performing Provider Status 04/24/25 3:[address] Femur w/o Contrast Left SPRING FREEMAN MD; Auth (Verified) [id number] ORIGINAL EXAMINATION: CT OF THE LEFT FEMUR WITHOUT CONTRAST 04/24/2025 3:14 pm TECHNIQUE: CT of the left femur was performed without the administration of intravenous contrast. Multiplanar reformatted images are provided for review. Automated exposure control, iterative reconstruction, and/or weight based adjustment of the mA/kV was utilized to reduce the radiation dose to as low as reasonably achievable. COMPARISON: Same day CT abdomen and pelvis HISTORY ORDERING SYSTEM PROVIDED HISTORY: Reason for Exam: suspected fracture, fall from height FINDINGS: Bones: There is buckling of the proximal to mid femoral shaft (series 601, image 71). No aggressive appearing osseous abnormality or periostitis. Soft Tissue: No significant soft tissue edema or fluid collections.Muscle compartments are unremarkable. Skeletally immature. There is loss of the normal contours of the femoral head neck junction of the anterior femur, cam deformity. IMPRESSION: 1. Buckling of the proximal to mid femoral shaft, this could be related to motion artifact offset on CT versus acute buckle fracture. 2. Cam deformity of the femoral head neck junction, correlate for femoroacetabular impingement. Interpreted by: Cris Freeman Preliminary Report By: Cris Freeman Electronically signed By Cris Freeman Dictated Date: 04/24/2025 3:55:43 PM Prelim Date: 04/24/2025 4:05:07 PM Sign Date: 04/24/2025 4:05:07 PM Ordering Provider: MASOOD BHATIA [facility]06-10-2025 Note* Exam Date Time Procedure Performing Provider Status 04/24/25 3:[address] Thorax w/ Contrast DAKOTA WILKINS DO; Auth (Verified) [id number] ORIGINAL EXAMINATION: CT OF THE CHEST WITH CONTRAST 04/24/2025 3:07 pm TECHNIQUE: CT of the chest was performed with the administration of intravenous contrast. Multiplanar reformatted images are provided for review. Automated exposure control, iterative reconstruction, and/or weight based adjustment of the mA/kV was utilized to reduce the radiation dose to as low as reasonably achievable. COMPARISON: None. HISTORY: ORDERING SYSTEM PROVIDED HISTORY: Reason for Exam: pt fell through several floors, back pain ; trauma patient - suspect aortic rupture, pulmonary trauma FINDINGS: Mediastinum: There are no pathologically enlarged axillary or supraclavicular lymph nodes. There are no pathologically enlarged mediastinal lymph nodes. The main pulmonary artery and aorta are normal in caliber. Lungs/pleura: There is no pneumothorax, focal consolidation, or pleural effusion. Is no suspicious nodule or mass. No acute process within the visualized lungs. Upper Abdomen: Same day CT abdomen and pelvis is reported separately. Soft Tissues/Bones: No acute soft tissue abnormality. No aggressive osseous lesion. IMPRESSION: No acute intrathoracic process. I have personally reviewed the images of this examination and agree with the resident's findings and interpretation. Interpreted by: Dakota Wilkins DO Preliminary Report By: Freddy Lancaster Electronically signed By Dakota Wilkins DO Dictated Date: 04/24/2025 3:11:39 PM Prelim Date: 04/24/2025 3:48:10 PM Sign Date: 04/24/2025 3:48:10 PM Ordering Provider: [facility]06-10-2025 Note* Exam Date Time Procedure Performing Provider Status 04/24/25 2:[address] Spine Cervical w/o Contrast KELLEY MENSAH MD; Auth (Verified) [id number] ORIGINAL HISTORY: Pain, trauma COMPARISON: No TECHNIQUE: Cervical spine CT with sagittal and coronal reconstructions. This exam was performed according to our departmental dose optimization program, and includes the following measures where applicable: automated exposure control, adjustment of the mAs and/or kVp according to patient size and/or exam, and an iterative reconstruction algorithm. FINDINGS: There are no acute fractures or dislocations. There is straightening of the normal cervical lordosis. The individual vertebral bodies are intact. The prevertebral soft tissues are unremarkable in appearance. IMPRESSION: No acute fracture. Interpreted by: Kelley Mensah MD Preliminary Report By: Kelley Mensah MD Electronically signed By Kelley Mensah MD Dictated Date: 04/24/2025 3:04:20 PM Prelim Date: 04/24/2025 3:05:39 PM Sign Date: 04/24/2025 3:05:39 PM Ordering Provider: [facility]06-10-2025 Note* Exam Date Time Procedure Performing Provider Status 04/24/25 2:[address] Head or Brain w/o Contrast Shivam MENSAH MD; Auth (Verified) [id number] ORIGINAL HISTORY: Fall COMPARISON: No TECHNIQUE: Routine noncontrast head CT, with sagittal and coronal reconstructions. This exam was performed according to our departmental dose optimization program, and includes the following measures where applicable: automated exposure control, adjustment of the mAs and/or kVp according to patient size and/or exam, and an iterative reconstruction algorithm. FINDINGS: The ventricles and sulci are normal in size and configuration. There are no abnormal intra or extra-axial fluid collections. -white matter differentiation is maintained. The calvaria and the bones of the base of the skull are intact. IMPRESSION: Negative. Interpreted by: Kelley Mensah MD Preliminary Report By: Kelley Mensah MD Electronically signed By Kelley Mensah MD Dictated Date: 04/24/2025 2:48:49 PM Prelim Date: 04/24/2025 2:49:40 PM Sign Date: 04/24/2025 2:49:40 PM Ordering Provider: [facility]05-24-2025 NoteHNO ID: [id number] Author: CARLO CEBALLOS APRN.VP INFORMATION TECHNOLOGY Service: ? Author Type: Nurse Practitioner Type: Progress Notes Filed: 04/07/2025 11:46 Note Text: [facility] Subjective Zuleyka Wheeler is a 20 year old male. Patient presents with: Sore Throat: With intermittent cough at night HPI Nontoxic-appearing 20-year-old male presents urgent care chief complaint sore throat cough runny nose. Duration of symptoms 4 days. Associated symptoms listed above. Presents today to rule out strep throat. OTC medications none recently. Unknown sick contacts. Denies any difficulty swallowing and secretion decreased range of motion neck trismus or high fevers. Past medical history prescription medications allergies reviewed Review of Systems Constitutional: Negative for chills, diaphoresis, fatigue and fever. HENT: Positive for rhinorrhea and sore throat. Negative for congestion, ear discharge, ear pain, sinus pressure, sinus pain and sneezing. Eyes: Negative for pain, discharge, redness, itching and visual disturbance. Respiratory: Positive for cough. Negative for chest tightness, shortness of breath and wheezing. Cardiovascular: Negative for chest pain. Gastrointestinal: Negative for abdominal pain, constipation, diarrhea, nausea and vomiting. Musculoskeletal: Negative for joint swelling, neck pain and neck stiffness. Skin: Negative for rash. Neurological: Negative for dizziness, weakness and headaches. Objective BP 119/73 Pulse 88 Temp 36.4 ?C (97.5 ?F) (Right Tympanic) Resp 16 Wt 90.2 kg (198 lb 13.7 oz) SpO2 100% Physical Exam Constitutional: Appearance: Normal appearance. HENT: Head: Normocephalic. Right Ear: Tympanic membrane, ear canal and external ear normal. Left Ear: Tympanic membrane, ear canal and external ear normal. Nose: Congestion present. No rhinorrhea. Mouth/Throat: Mouth: Mucous membranes are moist. Pharynx: Oropharynx is clear. No oropharyngeal exudate or posterior oropharyngeal erythema. Eyes: Conjunctiva/sclera: Conjunctivae normal. Cardiovascular: Rate and Rhythm: Normal rate. Pulmonary: Effort: Pulmonary effort is normal. Breath sounds: Normal breath sounds. No wheezing, rhonchi or rales. Abdominal: Palpations: Abdomen is soft. Tenderness: There is no abdominal tenderness. There is no guarding or rebound. Musculoskeletal: General: Normal range of motion. Cervical back: Normal range of motion and neck supple. No rigidity. Lymphadenopathy: Cervical: No cervical adenopathy. Skin: General: Skin is warm. Findings: No rash. Neurological: Mental Status: He is alert. {ASSESSMENT/PLAN: 1. Sore throat - ICD9: 462, ICD10: J02.9 (primary diagnosis) - STREP A MOLECULAR (POC) 2. Viral illness - ICD9: 079.99, ICD10: B34.9 - Discussed viral etiology and rationale for treatment. - Rapid strep negative in office today - Symptomatic treatment with prn analgesia - Supportive care with fluids and rest Strep test negative. No evidence of bacterial infection noted today's assessment. Treat as viral etiology. Red flags for prompt reevaluation discussed. Patient was educated on supportive therapies. Patient will follow up with primary care provider as needed. Patient was instructed to immediately proceed to emergency room for any new, worsening, or symptoms lasting longer than anticipated. The patient's clinical presentation is otherwise unremarkable at this time. Based on exam and clinical finding, the patient is stable for discharge. Plan of care was discussed with patient. Patient verbalizes understanding and agrees to plan of care. This note was generated using [email or web address].[email or web address] software. It may contain errors in wording, punctuation, or spelling. Carlo Ceballos APRN.VP INFORMATION TECHNOLOGY [facility] Telephone encounter Note* Telephone Encounter - Hernandez Payne MD - 02/28/2025 11:42 AM EDT Great, thank you. Please give me paperwork with patient label on it when you have a chance so that I can write the orders to send to [facility] for testing on 04/10 at 8:30 am. Hernandez Payne MD [facility]04-16-2025 Miscellaneous Notes* Telephone Encounter - Hernandez Payne MD - 02/28/2025 11:42 AM EDT Great, thank you. Please give me paperwork with patient label on it when you have a chance so that I can write the orders to send to [facility] for testing on 04/10 at 8:30 am. Hernandez Payne MD * Telephone Encounter - Veronica Akbar RN - 02/28/2025 8:41 AM EDT Spoke with Nicolas. The testing extracts after 45 days. * Telephone Encounter - Hernandez Payne MD - 02/27/2025 1:25 PM EDT Spoke to patient. He would like to proceed with skin tests to fire ant and, if positive, venom immunotherapy Please contact him to schedule an appointment in this office for the completion of allergy skin tests to fire ants. We will need to send orders to [facility] pharmacy to mix the extracts required for testing. There will be 1 set of percutaneous tests and up to 5 sets of intradermal tests as follows Fire ant whole body extract : Percutaneous test: 1:100 Intradermal test: 1:1,000,000 1:100,000 1:10,000 1:1000 1:500 Hernandez Payne MD * Telephone Encounter - Veronica Akbar RN - 02/27/2025 12:19 PM EDT [facility] pharmacy is able to provide the fire ant for testing. * Telephone Encounter - Hernandez Payne MD - 02/26/2025 8:28 PM EDT Fire ant skin tests are similar to testing to hymenoptera venom, where multiple dilutions may be required. Would they be able to provide this for us if we send them detailed orders? Hernandez Payne MD * Telephone Encounter - Veronica Akbar RN - 02/26/2025 5:00 PM EDT So I called [facility]- they cannot send out just a syringe to test to fire ants. I can order it myself from [facility]- let me know how you would like to proceed. * Telephone Encounter - Hernandez Payne MD - 02/26/2025 12:58 PM EDT Lab test was negative. Ideally, would also like to complete allergy skin tests to fire ants. Please ask the [facility] pharmacy if they have fire ant extract available for skin testing. If not, is this something they can order and mix for testing? I will respond to the patient after we hear back from the pharmacy. Hernandez Payne MD * Telephone Encounter - Veronica Akbar RN - 02/26/2025 7:34 AM EDT Please advise patient on labs and next plan of therapy. [facility] Telephone encounter Note * Telephone Encounter - Veronica Akbar RN - 02/28/2025 8:41 AM EDT Spoke with [facility]. The testing extracts after 45 days. [facility]04-15-2025 Telephone encounter Note* Telephone Encounter - Hernandez Payne MD - 02/27/2025 1:25 PM EDT Spoke to patient. He would like to proceed with skin tests to fire ant and, if positive, venom immunotherapy Please contact him to schedule an appointment in this office for the completion of allergy skin tests to fire ants. We will need to send orders to [facility] to mix the extracts required for testing. There will be 1 set of percutaneous tests and up to 5 sets of intradermal tests as follows Fire ant whole body extract : Percutaneous test: 1:100 Intradermal test: 1:1,000,000 1:100,000 1:10,000 1:1000 1:500 Hernandez Payne MD [facility]04-15-2025 Telephone encounter Note* Telephone Encounter - Veronica Akbar RN - 02/27/2025 12:19 PM EDT [facility] is able to provide the fire ant for testing. [facility]04-14-2025 Telephone encounter Note* Telephone Encounter - Hernandez Payne MD - 02/26/2025 8:28 PM EDT Fire ant skin tests are similar to testing to hymenoptera venom, where multiple dilutions may be required. Would they be able to provide this for us if we send them detailed orders? Hernandez Payne MD [facility]04-14-2025 Telephone encounter Note* Telephone Encounter - Veronica Akbar RN - 02/26/2025 5:00 PM EDT So I called [facility]- they cannot send out just a syringe to test to fire ants. I can order it myself from [facility]- let me know how you would like to proceed. [facility]04-14-2025 Telephone encounter Note* Telephone Encounter - Hernandez Payne MD - 02/26/2025 12:58 PM EDT Lab test was negative. Ideally, would also like to complete allergy skin tests to fire ants. Please ask the [facility] pharmacy if they have fire ant extract available for skin testing. If not, is this something they can order and mix for testing? I will respond to the patient after we hear back from the pharmacy. Hernandez Payne MD [facility]04-14-2025 Telephone encounter Note* Telephone Encounter - Veronica Akbar RN - 02/26/2025 7:34 AM EDT Please advise patient on labs and next plan of therapy. [facility]04-09-2025 Instructions* Patient Instructions* Hernandez Payne MD - 02/21/2025 9:20 AM EDT Have epinephrine autoinjectors (Epipen, Auvi-Q 0.3 mg, or Adrenaclick 0.3 mg) and cetirizine/Luazzo59 mg mg available at all times when in areas where fire aunts are found in case of fire ant sting and allergic reaction. Seek emergent medical care immediately after using epinephrine. A second epinephrine autoinjector may be administered 5 or more minutes after the first if the reaction persists or recurs while awaiting EMS. Schedule an appointment at your convenience for allergy testing to penicillin. Plan to be in the office for 2 to 3 hours. Avoid taking antihistamines including cetirizine/Zyrtec, Benadryl, Arcelia and Claritin for 5 days before the visit. [facility] History of Present illness Narrative* Anshul Stone RN - 02/21/2025 8:30 AM EDT Patient visit after an ED visit on 11/09/24 for an anaphylaxis reaction, patient went to the ER. Consult was placed by Wesley Vance APRN. Patient states that back in October he was on vacation in [place]. Patient sates that they had drove down, he hadn't had anything to eat or drink and was out in the sun playing volleyball bare foot. He then felt something on his foot but ignored it, patient thought maybe he had been bitten or stung and noticed there was some red but nothing else nearby. Afterward he noticed that there were ants but he didn't think much of it. On the drive back to the hotel he started feeling extremely itchy, he attempted to shower to was whatever was causing the problem off. After the shower his whole body was covered in a rash, he felt SOB, and felt like his throat wasswelling up. Patient attempted to take benadryl and put on itching cream with no relief. He lost the ability to talk and believes that he passed out on the way to the hospital. Patient has not had any anaphylactic reactions in the past. Patient has Penicillin listed as an allergy but is unsure whatthe reaction was. Patient states that he occasionally gets a runny nose and congestion with the change in the weather but no other allergy diagnosis or medications used regularly. 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 Baseline tryptase level will also be obtained. If Solenopsis invicta sIgE level is negative, will recommend the patient return for the completion of allergy skin test to fire ant extract. If tests are positive, subcutaneous allergy immunotherapy to Fire Ants will be recommended. Patientwill think about whether or not he would like to proceed with fire ant immunotherapy. Discussed therisks of not proceeding including risk of severe potentially fatal anaphylactic reaction. The patient should have epinephrine autoinjectors (Epipen, Auvi-Q 0.3 mg, or Adrenaclick 0.3 mg) and cetirizine 10 mg when in the areas where Fire ants are found, such as the [facility] and parts of [place], available at all times in case of insect sting and allergic reaction. Proper use of epinephrine autoinjectors was reviewed with the patient. Patient was instructed to seek emergent medical care immediately after use. A second epinephrine autoinjector may be administered 5or more minutes after the first if the reaction persists or recurs while awaiting EMS. 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 Recommend the patient return his convenience for further evaluation of possible penicillin allergy. (Depending on clinical history, may recommend a graded in office challenge to amoxicillin alone versus penicillin skin tests and then, if skin tests are negative, graded challenge to amoxicillin.) - Discussed medication dosage, usage, side effects, and goals of treatment in detail. - Recommend routine allergy follow-up visit in 1 year-although further evaluation of penicillin allergy may be completed before then at the patient's convenience- patient will return sooner should new symptoms or problems arise. Hernandez Payne MD Allergy & Immunology This is a consultation requested by Wesley Vance APRN, CNP for an allergy and immunology evaluation. My final recommendations will be communicated back to the requesting healthcare provider(s) by way of shared medical record or via U.S. mail. Zuleyka Wheeler is a 20 year old male who presents for further evaluation after experiencing an anaphylactic reaction. On November 09, 2024, patient was playing volleyball on a grass field shortly after arriving in [place] for vacation. He noted a mildly painful sting on his foot while playing volleyball. Later noted ants on the ground in the area. 1.5 hours after noting the sting, he developed generalized itching and then urticaria. He then developed a sensation of throat closure associated with difficulty breathing and abdominal pain. Per patient's girlfriend, he briefly lost consciousness upon arrival to the emergency room. In the emergency room, he was treated with epinephrine and othermedications with significant improvement in his symptoms. No known history of prior fire and stings. He typically travels to [place] 1 or 2 times per year. Sometimes travels to [place]. He hasepinephrine autoinjectors available at all times. In the hours preceding the sting, he drank water. No other food or drinks. Denies use of prescription or zbru-qaj-rwvlist medications prior to the onset of sxs. He has a history of penicillin allergy. Reaction occurred when he was a child. Details unknown. History of asthma in childhood. Denies symptoms in recent years. REVIEW OF SYSTEMS: All other review of systems negative except for those listed above. PAST MEDICAL HISTORY Diagnosis Date PMH - PAST MEDICAL HISTORY OF asthma like symptoms PMH - PAST MEDICAL HISTORY OF 04/03/08 normal color vision Routine or ritual circumcision MEDICATIONS: No prescriptions on file. ALLERGIES: Allergies As of Date: 02/21/2025 Allergen Noted Reaction PENICILLINS 09/07/2006 Hives Fully Assessed 02/05/2025 PAST SURGICAL HISTORY Procedure Laterality Date PAST SURGICAL HISTORY OF circumcision FAMILY HISTORY: Allergic rhinitis:no. Asthma: no. Eczema: no. Cystic fibrosis: no. Immunodeficiency: no. SOCIAL HISTORY: Employer And Job Title: None on file Years Of Education Completed: Not specified Marital Status: Single Social History Tobacco Use Smoking status: Never Smokeless tobacco: Not on file ENVIRONMENTAL HISTORY: Lives in a house Age of home: 20 years Heating: gas Woodburning fireplace in the home: no Air conditioning: No air conditioning Basement: Dry basement Christen: Hardwood floor Dust mite controls: Dust mite controls are not in place. Pets in the home: There are no pets in the home Outdoor animals: 6 cats, 1 dogs, 1 horse Tobacco smoke: No exposure in the home. Physical Exam: GENERAL APPEARANCE:Well appearing, alert, in no acute distress, well-hydrated, well nourished. HEENT: NCAT. EYES: conjunctiva and sclera normal. EARS: External ears normal. Canals clear. TM's normal. NOSE/SINUS: Nares normal. Septum midline. Mucosa normal. No drainage or sinus tenderness. THROAT: no erythema NECK:neck supple, no adenopathy HEART:RRR with normal S1 and S2 ,no murmurs, no gallops, no rubs LUNGS: clear to auscultation bilaterally, no wheezes, rales or rhonchi EXTREMITIES:Extremities normal, No deformities, No skin discoloration, and No edema SKIN: Skin color, texture, turgor normal. No rashes or lesions. [facility] NoteHNO ID: [id number] Author: ANSHUL STONE RN Service: ? Author Type: Registered Nurse Type: Progress Notes Filed: 02/22/2025 23:32 Note Text: Patient visit after an ED visit on 11/09/24 for an anaphylaxis reaction, patient went to the ER. Consult was placed by Wesley Vance APRN. Patient states that back in October he was on vacation in [place]. Patient sates that they had drove down, he hadn't had anything to eat or drink and was out in the sun playing volleyball bare foot. He then felt something on his foot but ignored it, patient thought maybe he had been bitten or stung and noticed there was some red but nothing else nearby. Afterward he noticed that there were ants but he didn't think much of it. On the drive back to the hotel he started feeling extremely itchy, he attempted to shower to was whatever was causing the problem off. After the shower his whole body was covered in a rash, he felt SOB, and felt like his throat was swelling up. Patient attempted to take benadryl and put on itching cream with no relief. He lost the ability to talk and believes that he passed out on the way to the hospital. Patient has not had any anaphylactic reactions in the past. Patient has Penicillin listed as an allergy but is unsure what the reaction was. Patient states that he occasionally gets a runny nose and congestion with the change in the weather but no other allergy diagnosis or medications used regularly.[facility]04-09-[facility] NoteHNO ID: [id number] Author: HERNANDEZ PAYNE MD Service: ? 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 Baseline tryptase level will also be obtained. If Solenopsis invicta sIgE level is negative, will recommend the patient return for the completion of allergy skin test to fire ant extract. If tests are positive, subcutaneous allergy immunotherapy to Fire Ants will be recommended. Patient will think about whether or not he would like to proceed with fire ant immunotherapy. Discussed the risks of not proceeding including risk of severe potentially fatal anaphylactic reaction. The patient should have epinephrine autoinjectors (Epipen, Auvi-Q 0.3 mg, or Adrenaclick 0.3 mg) and cetirizine 10 mg when in the areas where Fire ants are found, such as the [facility] and parts of [place], available at all times in case of insect sting and allergic reaction. Proper use of epinephrine autoinjectors was reviewed with the patient. Patient was instructed to seek emergent medical care immediately after use. A second epinephrine autoinjector may be administered 5 or more minutes after the first if the reaction persists or recurs while awaiting EMS. 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 Recommend the patient return his convenience for further evaluation of possible penicillin allergy. (Depending on clinical history, may recommend a graded in office challenge to amoxicillin alone versus penicillin skin tests and then, if skin tests are negative, graded challenge to amoxicillin.) - Discussed medication dosage, usage, side effects, and goals of treatment in detail. - Recommend routine allergy follow-up visit in 1 year-although further evaluation of penicillin allergy may be completed before then at the patient's convenience- patient will return sooner should new symptoms or problems arise. Hernandez Payne MD Allergy AND Immunology This is a consultation requested by Wesley Vance APRN, CNP for an allergy and immunology evaluation. My final recommendations will be communicated back to the requesting healthcare provider(s) by way of shared medical record or via U.S. mail. Zuleyka Wheeler is a 20 year old male who presents for further evaluation after experiencing an anaphylactic reaction. On November 09, 2024, patient was playing volleyball on a grass field shortly after arriving in [place] for vacation. He noted a mildly painful sting on his foot while playing volleyball. Later noted ants on the ground in the area. 1.5 hours after noting the sting, he developed generalized itching and then urticaria. He then developed a sensation of throat closure associated with difficulty breathing and abdominal pain. Per patient's girlfriend, he briefly lost consciousness upon arrival to the emergency room. In the emergency room, he was treated with epinephrine and other medications with significant improvement in his symptoms. No known history of prior fire and stings. He typically travels to [place] 1 or 2 times per year. Sometimes travels to [place]. He has epinephrine autoinjectors available at all times. In the hours preceding the sting, he drank water. No other food or drinks. Denies use of prescription or wseo-efi-yfiatbi medications prior to the onset of sxs. He has a history of penicillin allergy. Reaction occurred when he was a child. Details unknown. History of asthma in childhood. Denies symptoms in recent years. REVIEW OF SYSTEMS: All other review of systems negative except for those listed above. PAST MEDICAL HISTORY Diagnosis Date PMH - PAST MEDICAL HISTORY OF asthma like symptoms PMH - PAST MEDICAL HISTORY OF 04/03/08 normal color vision Routine or ritual circumcision MEDICATIONS: No prescriptions on file. ALLERGIES: Allergies As of Date: 02/21/2025 Allergen Noted Reaction PENICILLINS 09/07/2006 Hives Fully Assessed 02/05/2025 PAST SURGICAL HISTORY Procedure Laterality Date PAST SURGICAL HISTORY OF circumcision FAMILY HISTORY: Allergic rhinitis:no. Asthma: no. Eczema: no. Cystic fibrosis: no. Immunodeficiency: no. SOCIAL HISTORY: Employer And Job Title: None on file Years Of Education Completed: Not specified Marital Status: Single Social History Tobacco Use Smoking status: Never Smokeless tobacco: Not on file ENVIRONMENTAL HISTORY: Lives in a house Age of home: 20 years Heating: gas Woodburning fireplace in the home: no Air conditioning: No air conditioning Basement: Dry basement Christen: Hardwood floor Dust mite controls: Dust mite contro (more content not included)...[facility]03-24-2025 NoteHNO ID: [id number] Author: WESLEY VANCE APRN.OSKAR Service: ? Author Type: Nurse Practitioner Type: Progress Notes Filed: 02/05/2025 17:42 Note Text: This note was created using [employer]. Subjective Zuleyka Wheeler is a 20 year old male. HPI Patient was down in [place] in October 2024 and after playing volleyball he walks to [facility]. When he got back to his condo he notes that his feet were itching and within about 10 minutes he developed a generalized anaphylactic reaction. He was taken to a local emergency room where he was given epi along with other medications with complete resolution of symptoms. He presents today requesting information as to what may have caused his reaction. He denies any subsequent reactions. He does have an EpiPen that he can use as needed. Denies any known allergies. Review of Systems As above Objective BP 128/80 Pulse 71 Temp 36.6 ?C (97.9 ?F) (Tympanic) Resp 16 Wt 88.7 kg (195 lb 8.8 oz) SpO2 100% Physical Exam Vitals and nursing note reviewed. Constitutional: General: He is not in acute distress. Appearance: Normal appearance. He is not ill-appearing. HENT: Head: Normocephalic. Pulmonary: Effort: Pulmonary effort is normal. Musculoskeletal: General: Normal range of motion. Cervical back: Normal range of motion. Skin: General: Skin is warm and dry. Neurological: General: No focal deficit present. Mental Status: He is alert. Psychiatric: Mood and Affect: Mood normal. Behavior: Behavior normal. Assessment and Plan ASSESSMENT/PLAN: 1. Anaphylaxis, subsequent encounter - ICD9: V58.89, ICD10: T78.2XXD Patient denying any current symptoms on evaluation. His concern is that he had a reaction to an unknown trigger and is questioning what this trigger may be so he does not expose himself to it again. I had a discussion with him regarding allergy testing and patient was given follow-up with allergy for possible evaluation. I did review with him that is possible that they may not be able to test for his specific trigger. Patient does have an EpiPen which she will continue to carry with him. - CONSULT TO ALLERGY/IMMUNOLOGY [facility] History of Present illness Narrative* Wesley Vance APRN.OSKAR - 02/05/2025 5:34 PM EDT This note was created using [employer]. Subjective Zuleyka Wheeler is a 20 year old male. HPI Patient was down in [place] in October 2024 and after playing volleyball he walks to [facility]. When he got back to his condo he notes that his feet were itching and within about 10 minutes he developed a generalized anaphylactic reaction. He was taken to a local emergency room where he was given epi along with other medications with complete resolution of symptoms. He presents today requesting information as to what may have caused his reaction. He denies any subsequent reactions. He does have an EpiPen that he can use as needed. Denies any known allergies. Review of Systems As above Objective BP 128/80 Pulse 71 Temp 36.6 C (97.9 F) (Tympanic) Resp 16 Wt 88.7 kg (195 lb 8.8 oz) SpO2 100% Physical Exam Vitals and nursing note reviewed. Constitutional: General: He is not in acute distress. Appearance: Normal appearance. He is not ill-appearing. HENT: Head: Normocephalic. Pulmonary: Effort: Pulmonary effort is normal. Musculoskeletal: General: Normal range of motion. Cervical back: Normal range of motion. Skin: General: Skin is warm and dry. Neurological: General: No focal deficit present. Mental Status: He is alert. Psychiatric: Mood and Affect: Mood normal. Behavior: Behavior normal. Assessment and Plan ASSESSMENT/PLAN: 1. Anaphylaxis, subsequent encounter - ICD9: V58.89, ICD10: T78.2XXD Patient denying any current symptoms on evaluation. His concern is that he had a reaction to an unknown trigger and is questioning what this trigger may be so he does not expose himself to it again. I had a discussion with him regarding allergy testing and patient was given follow-up with allergy for possible evaluation. I did review with him that is possible that they may not be able to test forhis specific trigger. Patient does have an EpiPen which she will continue to carry with him. - CONSULT TO ALLERGY/IMMUNOLOGY Wesley Vance APRN.OSKAR [facility] History of Present illness Narrative* Oscar Garcia APRN.CNP - 02/02/2023 2:14 PM EDT Subjective HPI HPI Zuleyka Wheeler is a 18 year old male who presents today for CC of st, cough, congestion, fagitue. This started 4 days ago. Has tried otc medication for relief. Symptoms are worsened by nothing. Risk factors sick exposures at home and work. nonsmoker. .Patient presents with: Sore Throat: ST x 4 days PAST MEDICAL HISTORY Diagnosis Date PMH - PAST MEDICAL HISTORY OF asthma like symptoms PMH - PAST MEDICAL HISTORY OF 04/03/08 normal color vision Routine or ritual circumcision PAST SURGICAL HISTORY Procedure Laterality Date PAST SURGICAL HISTORY OF circumcision ALLERGIES Penicillins MEDICATIONS predniSONE (DELTASONE) 20 mg tablet Take 2 tablets by mouth once daily for 5 days. FAMILY HISTORY Problem Relation Age of Onset Heart Paternal Grandfather paternal side other (reaction to vaccines [Other]) Maternal Aunt other (handicapped [Other]) Paternal Uncle Social History Tobacco Use Smoking status: Never Review of Systems Constitutional: Positive for malaise/fatigue. Negative for fever. HENT: Positive for congestion and sore throat. Negative for ear pain and nosebleeds. Respiratory: Positive for cough. Negative for shortness of breath and wheezing. Musculoskeletal: Negative for neck pain. Objective Physical Exam Constitutional: General: He is not in acute distress. Appearance: He is not toxic-appearing or diaphoretic. HENT: Head: Normocephalic and atraumatic. Right Ear: Hearing, tympanic membrane, ear canal and external ear normal. Left Ear: Hearing, tympanic membrane, ear canal and external ear normal. Nose: Nose normal. Mouth/Throat: Pharynx: Uvula midline. No pharyngeal swelling, oropharyngeal exudate, posterior oropharyngeal erythema or uvula swelling. Eyes: General: Lids are normal. No scleral icterus. Right eye: No discharge. Left eye: No discharge. Conjunctiva/sclera: Conjunctivae normal. Pupils: Pupils are equal, round, and reactive to light. Neck: Trachea: Trachea normal. Cardiovascular: Rate and Rhythm: Normal rate and regular rhythm. Heart sounds: Normal heart sounds. Pulmonary: Effort: Pulmonary effort is normal. Breath sounds: Normal breath sounds. Musculoskeletal: Cervical back: Normal range of motion and neck supple. Lymphadenopathy: Cervical: No cervical adenopathy. Right cervical: No superficial cervical adenopathy. Left cervical: No superficial cervical adenopathy. Skin: Findings: No rash. Neurological: Mental Status: He is alert and oriented to person, place, and time. ASSESSMENT/PLAN: 1. URI, acute - ICD9: 465.9, ICD10: J06.9 (primary diagnosis) - Discussed viral etiology and rationale for treatment. - Symptomatic treatment with prn analgesia - Supportive care with fluids and rest - Follow up in 3-5 days if symptoms persist or sooner if worsening of symptoms - PREDNISONE 20 MG TABLET 2. Sore throat - ICD9: 462, ICD10: J02.9 Negative, viral - STREP A MOLECULAR (POC) Oscar Garcia APRN.OSKAR documented in this encounter[facility] History of Present illness Narrative* Carlo Ceballos APRN.OSKAR - 03/15/2022 1:24 PM EDT Nontoxic-appearing male presents urgent care chief complaint right eye pain. Duration of symptoms 1day. Associated symptoms. Eye pain and slight blurred vision with floaters. Patient states was struck in the eye yesterday by a volleyball. States pain did improve presents today for evaluation. Patient states he has a black spot in his vision. States possibly surrounding if he moves his eye. History of iritis. With patient's presenting symptoms I recommended patient needs to keep with ophthalmology or in ED today for further evaluation care. Father verbalized understanding Carlo Ceballos APRN.CNP [facility] No data available for this section [facility] Evaluation note* Diagnosis Procedure not carried out- Primary Procedure not carried out for other reasons documented in this encounter [facility] note* Diagnosis URI, acute- Primary Acute upper respiratory infections of unspecified site Sore throat Acute pharyngitis documented in this encounter [facility]* Diagnosis Anaphylaxis, subsequent encounter- Primary documented in this encounter [facility]* Diagnosis Toxic effect of venom, accidental or unintentional, initial encounter- Primary Anaphylaxis, subsequent encounter [id number] adverse effect of medication, initial encounter documented in this encounter [facility] Summary Purpose Family History No Family History Records FoundNo Family History Records FoundNo Family History Records FoundNo Family History Records FoundNo Family History Records Found No data available for this section No Family History Records Found Advance Directives No Advanced Directives Records FoundNo Advanced Directives Records FoundNo Advanced Directives Records FoundNo Advanced Directives Records FoundNo Advanced Directives Records FoundNo Advanced Directives Records Found Additional Source Comments (unrecognized sect ion and content) No Status Records FoundNo Status Records FoundNo Status Records FoundNo Status Records FoundNo Status Records FoundNo Status Records Found INFORMATION SOURCE (unrecogn ized section and content) DATE CREATED AUTHOR 05/04/2018 [facility] ([place]) DATE CREATED AUTHOR AUTHOR'S ORGANIZ ATION 06/12/2021 [facility] DATE CREATED AUTHOR AUTHOR'S ORGANIZ ATION 07/23/2022 [facility] DATE CREATED AUTHOR AUTHOR'S ORGANIZ ATION 02/24/2025 [facility] DATE CREATED AUTHOR AUTHOR'S ORGANIZ ATION 04/13/2025 [facility] DATE CREATED AUTHOR AUTHOR'S ORGANIZ ATION 04/30/2025 [facility] Source Comments (unrecognize d section and content) In the event this informatio n is protected by the Federal Confidentiality of Alcohol and Drug Abuse Patient Records regulations: The Federal rules restrict any use of the information to criminally investigate or prosecute any alcohol or drug abuse patient.[facility]on[facility] the event this information is protected by the Federal Confidentiality of Alcohol and Drug Abuse Patient Records regulations: The Federal rules restrict any use of the information to criminally investigate or prosecute any alcohol or drug abuse patient.[facility] the event this information is protected by the Federal Confidentiality of Alcohol and Drug Abuse Patient Records regulations: The Federal rules restrict any use of the information to criminally investigate or prosecute any alcohol or drug abuse patient.[facility] the event this information is protected by the Federal Confidentiality of Alcohol and Drug Abuse Patient Records regulations: The Federal rules restrict any use of the information to criminally investigate or prosecute any alcohol or drug abuse patient.[facility]on[facility] the event this information is protected by the Federal Confidentiality of Alcohol and Drug Abuse Patient Records regulations: The Federal rules restrict any use of the information to criminally investigate or prosecute any alcohol or drug abuse patient.[facility] Reason for Visit (unrecogniz ed section and content) Reason Comments Eye Problem right eye injury, hi t by a volleyball last night Reason Comments Sore Throat ST x 4 days Reason Comments Allergic Reaction Thinks he had an all ergic reaction to fire ants in October and wants checked Reason Comments New Patient Specialty Diagnoses / Procedures Referred By Contac t Referred To Contact Allergy Diagnoses Anaphylaxis, subsequent encounter Procedures CONSULT TO ALLERGY/IMMUNOLOGY OFFICE/OUTPATIENT NEW HIGH MDM 60 MINUTES Wesley Vance, LONNIE.[employer] [address] [place] [address] Phone: tel: fax: Referral ID Status Reason Start Date Expiration Date V isits Requested Visits Authorized [id number] Closed PCP Requested Referral 02/05/2025 02/05/2026 1 1 Patient Care team informatio n (unrecognized section and content) Care Team Personnel Name: GREER WHEELER MD Member Role: Primary Care Physician Address: [address] [place] [address]- Telecom: Care Team Related Persons Name: ANNIKA WHEELER FOR RECORDS PERTAINING TO PATIENTS WHO ARE OR HAVE BEEN ENROLLED IN A CHEMICAL DEPENDENCY/SUBSTANCEABUSE PROGRAM, SOME INFORMATION MAY BE OMITTED. This clinical summary was aggregated from multiple sources. Caution should be exercised in using it in the provision of clinical care. This summary normalizes information from multiple sources, and as a consequence, information in this document may materially change the coding, format and clinical context of patient data. In addition, data may be omitted in some cases. CLINICAL DECISIONS SHOULD BE BASED ON THE PRIMARY CLINICAL RECORDS. [employer] and [employer] [facility]. provides no warranty or guarantee of the accuracy or completeness of information in this document.
== END | disposition home or self-care (01) ==
PROVIDERS: PCP Pediatrics; Referring Provider Physician Assistant; Visit Provider Physician Assistant
DX: R22.42 Localized swelling, mass and lump, left lower limb (principal)
CPT/HCPCS: 93971

== ENCOUNTER 2025-07-26 10:17 | Emergency (ER) | payer OTHER, SELFPAY ==
[2025-07-26 10:18] VITALS: BP 119/67; PULSE 68; RESP 18; TEMP 36.4; O2SAT 100; BMI 24.1
[2025-07-26 11:18] VITALS: BP 111/58; PULSE 62; RESP 16; O2SAT 100
[2025-07-26 12:00] VITALS: BP 117/80; PULSE 77; RESP 16; O2SAT 100
[2025-07-26 12:41] VITALS: BP 117/80; PULSE 77; RESP 16; TEMP 36.6; O2SAT 100
--- NOTE | 2025-07-31 00:24 | EDS_ITS ---
HPI History of Present Illness Chief Complaint: Allergic Reaction Narrative Narrative: Patient is a 20-year-old male presenting to the emergency department for a reported allergic reaction. Patient has no significant past medical history. He states that he was at his [employer] office receiving fire ant venom and shortly after developed nausea and lightheadedness. He states he called EMS shortly after leaving the office. They gave 25 mg of Benadryl. Patient states that here he started to feel better. Denies any urticaria, vomiting, diarrhea, difficulty breathing, swelling of the mouth lips or throat. Denies any voice change. Denies any other medications other than the Benadryl. Denies any chest pain. PFSH PFSH Home Medications ?Medication ?Instructions ?Recorded ?Last Taken ?Type ondansetron HCl 8 mg tablet 8 mg PO Q12H PRN nausea an d 07/23/22 Unknown Rx vomiting #10 tabs prednisone 20 mg tablet 40 mg (2 x 20 mg) PO DAILY 4 days 07/26/25 Unknown Rx #8 tabs Allergy/AdvReac Type Severity Reaction Status Date / Time No Known Allergies Allergy Verified 07/26/25 10:21 Social History Smoking Status: Never smoker ROS ROS ED ROS Narrative See HPI EXAM Physical Exam Narrative Exam Narrative: Vital signs: Reviewed General: Alert and oriented x 3. No acute distress HEENT: Head is normocephalic and atraumatic, sinuses nontender, pupils equal round and reactive. Nares are patent. Oropharynx and throat exams normal. No tongue, lip or oropharynx swelling or erythema. Neck: Supple without lymphadenopathy nontender Cardiovascular: Regular rate and rhythm, no murmurs. No rubs or gallops. Normal S1 and S2 Respiratory: Clear to auscultation bilaterally. No wheezes, rales, rhonchi Abdominal: Soft and nontender. Normal bowel sounds. No guarding or rebound. Nonsurgical abdomen Extremities: No tenderness. No bruising. Normal range of motion. Normal sensation. Skin: No rash or redness. No urticaria. Neurological: Cranial nerves II through XII are grossly intact. Normal strength and sensation. Normal cerebellar function The rest of the physical exam is unremarkable MDM MDM MDM Narrative Medical decision making narrative: Patient is a 20-year-old male presenting to the emergency department for concern of an allergic reaction. Patient was seen and examined. Vitals are stable. Patient resting bed comfortably no acute distress. Patient was feeling normal before the appointment. After being injected with a fire ant venom developed nausea and lightheadedness. He had no other signs of allergic reaction including no urticaria, no wheezing, no tongue, lip swelling. Patient given steroids, Pepcid and additional dose of Benadryl here and observed. Patient reevaluated, complete resolution of symptoms. Family at bedside now. Updated them on the recommendations for allergic reaction treatment for home including Zyrtec/Benadryl as needed and short course of steroids. I did speak with the patient's allergy office and updated them on the ER visit and medications given. They state they will follow-up with him as soon as possible. The patient's symptoms started shortly after the injection, I do think this is likely related. He had no chest pain or shortness of breath. I do not think this is cardiac in nature. He has no significant past medical history no family history of sudden cardiac . Patient discharged from the Emergency Department. I do not feel that the patient's evaluation reveals any acute reason for admission at this time. I instructed them to either follow-up with their primary care physician or promptly return to the Emergency Department for reevaluation should symptoms worsen or new symptoms develop. I explained what symptoms would indicate the need to return to the emergency department. Shared decision making was used. The patient voiced understanding of the treatment plan and is agreeable with it. Clinical impression Allergic reaction History & Record Review Discussion w/independent historian: Patient and Family Discharge Plan Triage Chief Complaint: Allergic Reaction ED Provider: Yulia Wilkins Dx/Rx/DC Orders Clinical Impression: Allergic reaction Instructions: ED General Allergic Reactions Prescriptions: New prednisone 20 mg tablet 40 mg PO DAILY 4 Days Qty: 8 0RF No Action ondansetron HCl 8 mg tablet 8 mg PO Q12H PRN (Reason: nausea and vomiting) Qty: 10 0RF Primary Care Provider: Yousif Lewis Referrals: Yousif Lewis DO [Primary Care Provider] - 2 Days Activity Restrictions/Additional Instructions: Take the prednisone daily for 4 days. During the day you can take Zyrtec if needed for itching. At night you can take Benadryl if needed for itching. Please carry your EpiPen with you at all times. Your evaluation in the Emergency Department did not reveal any acute reason for admission. However, I want to emphasize that you may be early in the course of a disease process or illness even if it is not present. For this reason you should follow-up within 24 hours for reevaluation with either your primary care physician or if necessary back here in the Emergency Department. You should return to the Emergency Department immediately if your symptoms worsen or new symptoms develop. Print Language: Arabic Disposition Disposition: Home, Self Care Discharge Date/Time: 07/26/25 12:51
== END 2025-07-26 12:51 | disposition home or self-care (01) ==
PROVIDERS: Emergency Provider Student in an Organized Health Care Education/Training Program; PCP Pediatrics; Visit Provider Student in an Organized Health Care Education/Training Program
DX: T78.40XA Allergy, unspecified, initial encounter (principal); R42 Dizziness and giddiness; R11.0 Nausea
CPT/HCPCS: 99284